=== PATIENT | male | born 1965 | race Caucasian/White ===

== ENCOUNTER 2023-10-05 06:52 | Outpatient (OUT) | payer OTHER, SELFPAY ==
[2023-10-05 07:39] LABS: Alanine Aminotransferase 17 U/L (16-63); Albumin Globulin Ratio 1.1; Albumin Level 3.6 g/dL (3.4-5.0); Alkaline Phosphatase 50 U/L (46-116); Anion Gap 12.3; Aspartate Amino Transferase 19 U/L (15-37); BUN Creatinine Ratio 13.8; Basophils Absolute Auto 0.1 10^3/uL (0.0-0.1); Basophils Percent Auto 1.3 % (0.2-2.0); Bilirubin Total 0.4 mg/dL (0.2-1.0); Calcium 8.5 mg/dL (8.5-10.1); Carbon Dioxide 29.8 mmol/L (21.0-32.0); Chloride 104 mmol/L (98-107); Chol HDL Ratio 4.2; Cholesterol 233 mg/dL (<=200); Eosinophils Absolute Auto 1.7 10^3/uL (0.0-0.7); Eosinophils Percent Auto 25.3 % (0.9-7.0); Estimated GFR (African America >60 (>=60); Estimated GFR (Non-African Ame >60 (>=60); Globulin 3.3 g/dL; Glucose 100 mg/dL (74-106); HDL Cholesterol 55 mg/dL (40-60); Hematocrit 42.9 % (42.0-54.0); Hemoglobin 13.9 g/dL (14.0-18.0); Immature Granulocytes Abs Auto 0.02 10^3/uL (0.00-0.03); Immature Granulocytes Pct Auto 0.3 % (0.0-0.5); Lymphocytes Absolute Auto 1.9 10^3/uL (1.2-3.8); Lymphocytes Percent Auto 27.9 % (20.5-60.0); Mean Corpuscular HGB Conc 32.4 g/dL (29.9-35.2); Mean Corpuscular Hemoglobin 31.1 pg (25.9-34.0); Mean Platelet Volume 9.5 fL (9.5-13.5); Monocytes Absolute Auto 0.5 10^3/uL (0.3-0.8); Monocytes Percent Auto 7.8 % (1.7-12.0); Neutrophils Absolute Auto 2.5 10^3/uL (1.4-6.5); Neutrophils Percent Auto 37.4 % (43.0-75.0); Platelet Count 227 10^3/uL (150-450); Potassium 4.1 mmol/L (3.5-5.1); Red Blood Count 4.47 10^6/uL (4.70-6.10); Red Cell Distribution Width 12.9 % (11.0-15.0); Sodium 142 mmol/L (136-145); Total Protein 6.9 g/dL (6.4-8.2); Triglycerides 130 mg/dL (<=150); White Blood Count 6.7 10^3/uL (4.0-11.0)
[2023-10-05 07:55] LABS: Prostate Specific Antigen Scrn 2.02 ng/mL (<=4.00)
== END 2023-10-05 06:53 | disposition home or self-care (01) ==
LOC: LAB 06:55
PROVIDERS: PCP Internal Medicine; Visit Provider Internal Medicine
DX: Z00.00 Encounter for general adult medical examination without abnormal findings (principal); Z12.5 Encounter for screening for malignant neoplasm of prostate
CPT/HCPCS: 36415; 80053; 80061; 85025; G0103

== ENCOUNTER 2023-11-14 10:56 | Outpatient (OUT) | payer OTHER, SELFPAY ==
[2023-11-14 11:51] LABS: Basophils Absolute Auto 0.1 10^3/uL (0.0-0.1); Basophils Percent Auto 0.8 % (0.2-2.0); Eosinophils Absolute Auto 0.6 10^3/uL (0.0-0.7); Eosinophils Percent Auto 7.8 % (0.9-7.0); Hematocrit 45.8 % (42.0-54.0); Hemoglobin 14.5 g/dL (14.0-18.0); Immature Granulocytes Abs Auto 0.01 10^3/uL (0.00-0.03); Immature Granulocytes Pct Auto 0.1 % (0.0-0.5); Lymphocytes Absolute Auto 1.9 10^3/uL (1.2-3.8); Lymphocytes Percent Auto 26.8 % (20.5-60.0); Mean Corpuscular HGB Conc 31.7 g/dL (29.9-35.2); Mean Corpuscular Hemoglobin 30.3 pg (25.9-34.0); Mean Corpuscular Volume 95.8 fL (80.0-94.0); Mean Platelet Volume 9.6 fL (9.5-13.5); Monocytes Absolute Auto 0.7 10^3/uL (0.3-0.8); Monocytes Percent Auto 9.5 % (1.7-12.0); Neutrophils Absolute Auto 3.9 10^3/uL (1.4-6.5); Platelet Count 228 10^3/uL (150-450); Red Blood Count 4.78 10^6/uL (4.70-6.10); Red Cell Distribution Width 12.4 % (11.0-15.0); White Blood Count 7.2 10^3/uL (4.0-11.0)
[2023-11-14 11:59] LABS: Percent Iron Saturation 33.3 %
== END 2023-11-14 10:57 | disposition home or self-care (01) ==
LOC: LAB 10:57
PROVIDERS: PCP Internal Medicine; Visit Provider Internal Medicine
DX: D64.9 Anemia, unspecified (principal)
CPT/HCPCS: 36415; 82607; 82728; 82746; 83540; 83550; 85025

== ENCOUNTER 2024-10-16 06:26 | Outpatient (OUT) | payer OTHER, SELFPAY ==
--- OUTSIDE RECORDS SUMMARY | 2024-10-16 06:29 | XMS_ITS | CCD ---
Author Organization [facility] Care Team Providers Care Graphic Coordinator Name Role Phone ZANDER BOWDEN Unavailable Unavailable BOGDAN ZANDER P Unavailable Unavailable GASEYO Unavailable Unavailable JAM TOVAR Unavailable Unavailable BOGDANZANDER Unavailable Unavailable BALLJAM Unavailable Unavailable BOGDAN, ZANDER Fleming Unavailable Unavailable BOGDAN, ZANDER P Unavailable Unavailable JAM TOVAR Unavailable Unavailable GUY, DR RIDLEY Attending Unavailable BALL, DR RIDLEY Consulting Unavailable BALL, DR RIDLEY Primary Care Unavailable BALL, DR RIDLEY Admitting Unavailable Jam Tovar Unavailable HARLEY JEFFREY Attending Unavailable Medications Current Medications Medication Drug Class(es) Dates Sig (Normalized) Sig (Original) amLODIPine 5 mg oral tablet (4 sources) Dihydropyridine Calcium Channel Drew amLODIPine Besylate 5 mg TAKE 1 TABLET DAILY Active benazepril hydrochloride 20 mg oral tablet (4 sources) Angiotensin Converting Enzyme Inhibitor Benazepril HCl 20 mg TAKE 1 TABLET DAILY Active Completed/Discontinued Medications Medication Drug Class(es) Dates Sig (Normalized) Sig (Original) cephalexin 500 mg oral capsule (3 sources) Cephalosporin Antibacterial Start: 02-11-2014 take 1 capsule by mouth every six hours Cephalexin 500 MG 1 capsule Orally Four times a day for 10 day(s) Jan, Not-Taking/PRN predniSONE 20 mg oral tablet (3 sources) Start: 11-16-2022 Prednisone 20 MG predniSONE 20mg, 1 (one) tablet two times daily w/ food x 3 days then qd w/ food x 3 days # 9, 11/16/2022, No Refill. Active Oral two times daily w/ food x 3 days then qd w/ food x 3 days for 6 Oct, Not-Taking/PRN Suprep Bowel Prep . (3 sources) Start: 09-10-2014 Suprep Bowel Prep . as directed Orally as directed for 1 dose(s) Aug, Not-Taking/PRN Start: 09-10-2014 Suprep Bowel P rep . as directed Orally as directed for 1 dose(s) Aug, Not-Taking Triamcinolone (3 sources) Corticosteroid Start: 11-04-2022 Triamcinolone Acetonide 0.5% triamcinolone acetonide 0.5%, 1 (one) gram two times daily # 60, 11/04/2022, No Refill. Active topical two times daily for Oct, Not-Taking/PRN Start: 11-04-2022 Triamcinolone Acetonide 0.5% triamcinolone acetonide 0.5%, 1 (one) gram two times daily # 60, 11/04/2022, No Refill. Active topical two times daily for Oct, Not-Taking Problems Active Problems Problem Classification Problem Date Documented Date Episodic/Chronic Allergic reactions (1 source) Other urticaria Episodic Deficiency and other anemia (1 source) Anemia, unspecified Episodic Diseases of white blood cells (3 sources) Eosinophil count raised; Translations: [Eosinophilia, unspecified] Chronic Disorders of lipid metabolism (8 sources) Pure hypercholesterolemia; Translations: [Familial hypercholesterolemia] Chronic Diverticulosis and diverticulitis (4 sources) Diverticulosis of colon; Translations: [Diverticulosis of large intestine without perforation or abscess without bleeding] Chronic Essential hypertension (4 sources) Essential hypertension; Translations: [Essential (primary) hypertension] Chronic Hyperplasia of prostate (4 sources) Lower urinary tract symptoms due to benign prostatic hypertrophy; Translations: [Benign prostatic hyperplasia with lower urinary tract symptoms] Chronic Malaise and fatigue (7 sources) Fatigue; Translations: [Other fatigue] Episodic Osteoarthritis (2 sources) Unilateral primary osteoarthritis, right hip; Translations: [Unilateral primary osteoarthritis, right hip] Onset: 02-09-2018 Chronic Other nutritional; endocrine; and metabolic disorders (8 sources) Body mass index 30+ - obesity; Translations: [Body mass index (BMI) 33.0-33.9, adult] Chronic Other nutritional; endocrine; and metabolic disorders (4 sources) Obesity caused by energy imbalance; Translations: [Other obesity due to excess calories] Chronic Other screening for suspected conditions (not mental disorders or infectious disease) (1 source) Encounter for screening for malignant neoplasm of prostate; Translations: [ENC SCREEN MALIG NEOPLASM PROSTATE] Onset: 09-18-2022 Episodic Other skin disorders (4 sources) Vesicular eczema of hands and/or feet; Translations: [Dyshidrosis [pompholyx]] Episodic Past or Other Problems Problem Classification Problem Date Documented Da te Episodic/Chronic Unclassified (1 source) Eosinophilia, unspecified D72.10 Results Test Name Value Interpretation Reference Range Facility CBC AUTO DIFFon 09-14-2022 BASO # 0.0 103/ul Normal 0[facility]0-0.1 [facility] Comment on above: Performed By: #### C BC #### [facility] [address] [address] [address] Cornelio Pelayo Basophils/100 WBC (Bld) 0.4 % Normal 0.2-2.0 [facility] Comment on above: Performed By: #### C BC #### [facility] [address] [address] [address] Cornelio Pelayo EO # 0.2 103/ul Normal 0.0-0.7 [facility] Comment on above: Performed By: #### C BC #### [facility] [address] [address] [address] Cornelio Pelayo Eosinophils/100 WBC (Bld) 3.8 % Normal 0.9-7.0 [facility] Comment on above: Performed By: #### C BC #### [facility] [address] [address] [address] Cornelio Pelayo Erythrocyte distribution width (RBC) [Ratio] 13.0 % Normal 11.0-15.0 [facility] Comment on above: Performed By: #### C BC #### [facility] [address] [place] [address] Dr. Cornelio Pelayo Hematocrit (Bld) [Volume fraction] 43.0 % Normal 42.0-54.0 [facility] Comment on above: Performed By: #### C BC #### [facility] [address] [place] [address] Dr. Cornelio Pelayo Hemoglobin (Bld) [Mass/Vol] 14.1 g/dL Normal 14.0-18.0 [facility] Comment on above: Performed By: #### C BC #### [facility] [address] [place] [address] Dr. Cornelio Pelayo IG # 0.00 10e3/ul Normal 0.00-0.03 [facility] Comment on above: Performed By: #### C BC #### [facility] [address] [place] [address] Dr. Cornelio Pelayo IG % 0.0 % Normal 0.0-0.5 [facility] Comment on above: Performed By: #### C BC #### [facility] [address] [place] [address] Dr. Cornelio Pelayo LYMPH # 1.7 103/ul Normal 1.2-3.8 [facility] Comment on above: Performed By: #### C BC #### [facility] [address] [place] [address] Dr. Cornelio Pelayo Lymphocytes/100 WBC (Bld) 36.4 % Normal 20.5-60.0 [facility] Comment on above: Performed By: #### C BC #### [facility] [address] [place] [address] Dr. Cornelio Pelayo MANUAL DIFF REQ NO [facility] Comment on above: Performed By: #### C BC #### [facility] [address] [place] [address] Dr. Cornelio Pelayo MCH (RBC) [Entitic mass] 30.7 pg Normal 25.9-34.0 [facility] Comment on above: Performed By: #### C BC #### [facility] [address] [place] [address] Dr. Cornelio Pelayo MCHC (RBC) [Mass/Vol] 32.8 g/dL Normal 29.9-35.2 [facility] Comment on above: Performed By: #### C BC #### [facility] [address] [place] [address] Dr. Cornelio Pelayo MCV (RBC) [Entitic vol] 93.5 fL Normal 80.0-94.0 [facility] Comment on above: Performed By: #### C BC #### [facility] [address] [place] [address] Dr. Cornelio Pelayo MONO # 0.4 103/ul Normal 0.3-0.8 [facility] Comment on above: Performed By: #### C BC #### [facility] [address] [place] [address] Dr. Cornelio Pelayo Monocytes/100 WBC (Bld) 8.5 % Normal 1.7-12.0 [facility] Comment on above: Performed By: #### C BC #### [facility] [address] [place] [address] Dr. Cornelio Pelayo NEUT # 2.4 103/ul Normal 1.4-6.5 [facility] Comment on above: Performed By: #### C BC #### [facility] [address] [place] [address] Dr. Cornelio Pelayo Neutrophils/100 WBC (Bld) 50.9 % Normal 43.0-75.0 [facility] Comment on above: Performed By: #### C BC #### [facility] [address] [place] [address] Dr. Cornelio Pelayo Platelet mean volume (Bld) [Entitic vol] 9.0 fL Critically low 9.5-13.5 [facility] Comment on above: Performed By: #### C BC #### [facility] [address] [place] [address] Dr. Cornelio Pelayo PLT 222 103/ul Normal 150-450 [facility] Comment on above: Performed By: #### C BC #### [facility] [address] [place] [address] Dr. Cornelio Pelayo RBC 4.60 106/ul Critically low 4.70-6.10 [facility] Comment on above: Performed By: #### C BC #### [facility] [address] [place] [address] Dr. Cornelio Pelayo WBC 4.7 103/ul Normal 4.0-11.0 [facility] Comment on above: Performed By: #### C BC #### [facility] [address] [place] [address] Dr. Cornelio Pelayo LIPID PROFILEon 09-14-2022 CHOL-HDL RATIO NORM SEE BELOW Normal [facility] Comment on above: Result Comment: 3.3 - 4.4 LOW RISK 4.4 - 7.1 AVERAGE RISK 7.1 - 11.0 MODERATE RISK >11.0 HIGH RISK Performed By: #### L IPID, CMP #### [facility] [address] [address] [address] Cornelio Pelayo Cholesterol [Mass/Vol] 233 mg/dL Critically high <=200 [facility] Comment on above: Performed By: #### L IPID, CMP #### [facility] [address] [address] [address] Cornelio Pelayo Cholesterol in HDL [Mass/Vol] 58 mg/dL Normal 40-60 [facility] Comment on above: Performed By: #### L IPID, CMP #### [facility] [address] [place] [address] Dr. Cornelio Pelayo Cholesterol in LDL [Mass/Vol] 151.4 mg/dL [facility] Comment on above: Performed By: #### L IPID, CMP #### [facility] [address] [address] [address] Cornelio Pelayo Cholesterol.total/C holesterol in HDL [Mass ratio] 4.0 {ratio} [facility] Comment on above: Performed By: #### L IPID, CMP #### [facility] [address] [place] [address] Dr. Cornelio Pelayo HDL NORMAL > or = 60 mg/dl - LO W CARDIOVASCULAR RISK <40 mg/dl - HIGH CARDIOVASCULAR RISK [facility] Comment on above: Performed By: #### L IPID, CMP #### [facility] [address] [address] [address] Cornelio Pelayo LDL CALC NORMAL SEE BELOW [facility] Comment on above: Result Comment: <100 mg/dl OPTIMAL 100 - 129 mg/dl NEAR OR ABOVE OPTIMAL 130 - 159 mg/dl BORDERLINE HIGH 160 - 189 mg/dl HIGH >190 mg/dl VERY HIGH Performed By: #### L IPID, CMP #### [facility] [address] [place] [address] Dr. Cornelio Pelayo Triglyceride [Mass/Vol] 118 mg/dL Normal <=150 [facility] Comment on above: Performed By: #### L IPID, CMP #### [facility] [address] [place] [address] Dr. Cornelio Pelayo VLDL CALC 23.6 mg/dL [facility] Comment on above: Performed By: #### L IPID, CMP #### [facility] [address] [place] [address] Dr. Cornelio Pelayo PROF 14(COMP METB)on 022 Albumin [Mass/Vol] 3.7 g/dL Normal 3.4-5.0 [facility] Comment on above: Performed By: #### L IPID, CMP #### [facility] [address] [place] [address] Dr. Cornelio Pelayo Albumin/Globulin [Mass ratio] 1.1 {ratio} [facility] Comment on above: Performed By: #### L IPID, CMP #### [facility] [address] [place] [address] Dr. Cornelio Pelayo ALP [Catalytic activity/Vol] 50 U/L Normal 46-116 [facility] Comment on above: Performed By: #### L IPID, CMP #### [facility] [address] [place] [address] Dr. Cornelio Pelayo ALT [Catalytic activity/Vol] 15 U/L Critically low 16-63 [facility] Comment on above: Performed By: #### L IPID, CMP #### [facility] [address] [place] [address] Dr. Cornelio Pelayo Anion gap [Moles/Vol] 11.0 mmol/L [facility] Comment on above: Performed By: #### L IPID, CMP #### [facility] [address] [place] [address] Dr. Cornelio Pelayo AST [Catalytic activity/Vol] 19 U/L Normal 15-37 [facility] Comment on above: Performed By: #### L IPID, CMP #### [facility] [address] [place] [address] Dr. Cornelio Pelayo Bilirubin [Mass/Vol] 0.4 mg/dL Normal 0.2-1.0 [facility] Comment on above: Performed By: #### L IPID, CMP #### [facility] [address] [place] [address] Dr. Cornelio Pelayo Calcium [Mass/Vol] 8.6 mg/dL Normal 8.5-10.1 [facility] Comment on above: Performed By: #### L IPID, CMP #### [facility] [address] [place] [address] Dr. Cornelio Pelayo Chloride [Moles/Vol] 104 mmol/L Normal 98-107 [facility] Comment on above: Performed By: #### L IPID, CMP #### [facility] [address] [place] [address] Dr. Cornelio Pelayo CO2 [Moles/Vol] 29.1 mmol/L Normal 21.0-32.0 [facility] Comment on above: Performed By: #### L IPID, CMP #### [facility] [address] [place] [address] Dr. Cornelio Pelayo Creatinine [Mass/Vol] 1.15 mg/dL Normal 0.70-1.30 [facility] Comment on above: Performed By: #### L IPID, CMP #### [facility] [address] [place] [address] Dr. Cornelio Pelayo EGFR-AF MEXICAN >60 Normal >=60 [facility] Comment on above: Performed By: #### L IPID, CMP #### [facility] [address] [place] [address] Dr. Cornelio Pelayo EGFR-NON AF MEXICAN >60 Normal >=60 [facility] Comment on above: Performed By: #### L IPID, CMP #### [facility] [address] [place] [address] Dr. Cornelio Pelayo Globulin (S) [Mass/Vol] 3.4 g/dL Normal [facility] Comment on above: Performed By: #### L IPID, CMP #### [facility] [address] [place] [address] Dr. Cornelio Pelayo Glucose [Mass/Vol] 103 mg/dL Normal 74-106 [facility] Comment on above: Performed By: #### L IPID, CMP #### [facility] [address] [place] [address] Dr. Cornelio Pelayo Potassium [Moles/Vol] 4.1 mmol/L Normal 3.5-5.1 [facility] Comment on above: Performed By: #### L IPID, CMP #### [facility] [address] [place] [address] Dr. Cornelio Pelayo Protein [Mass/Vol] 7.1 g/dL Normal 6.4-8.2 [facility] Comment on above: Performed By: #### L IPID, CMP #### [facility] [address] [place] [address] Dr. Cornelio Pelayo Sodium [Moles/Vol] 140 mmol/L Normal 136-145 [facility] Comment on above: Performed By: #### L IPID, CMP #### [facility] [address] [place] [address] Dr. Cornelio Pelayo Urea nitrogen [Mass/Vol] 14.0 mg/dL Normal 7.0-18.0 [facility] Comment on above: Performed By: #### L IPID, CMP #### [facility] [address] [place] [address] Dr. Cornelio Pelayo Urea nitrogen/Creatinine [Mass ratio] 12.2 mg/mg [facility] Comment on above: Performed By: #### L IPID, CMP #### [facility] [address] [place] [address] Dr. Cornelio Pelayo XR HIP RIGHT (1 VIEW)on 01-19 XR HIP RIGHT (1 VIEW) REPORT: Intraprocedural fluoroscopyINDICATION: Total right hip arthroplastyFINDINGS/Final report electronically signed by Nicole Dean on 02/12/2018 8:16 AMIMPRESSION: Fluoroscopy provided for Dr. Bowden in the OR. Total fluoroscopy time was 44.8 seconds. Total reported dose 7.75 mGy. A total of 5 images saved. A right hip arthroplasty is in place.Interpreted by:MEGHAN Batistaigned by:Nicole Dean MD02/12/18inal result Normal [facility] Hgb/Hcton 02-10-2018 Hematocrit (HCT) 38.5 % Low 40.7-50.3 [facility] Comment on above: Result Comment: Perf ormed at [facility] [address] [place] [address] [phone] Performed By: #### H H ####[facility] , [place] [id number] Hemoglobin mass conc (Bld) 12.7 g/dL Low 13.0-17.0 [facility] Comment on above: Performed By: #### H H ####[address] [place] [address] Plan of Careon 02-10-2018 HIM IP Note OR Grid Molder Normal [facility] HIM IP Note OR Grid Molder Normal [facility] Progress Noteon 02-10-2018 HIM IP Note OR Grid Molder Normal [facility] HIM IP Note OR Grid Molder Normal [facility] HIM IP Note OR Grid Molder Normal [facility] Discharge Summaryon 02-10-20 18 HIM IP Note OR Grid Molder Normal [facility] Op Noteon 02-09-2018 HIM IP Note OR Grid Molder Normal [facility] Progress Noteon 02-09-2018 HIM IP Note OR Grid Molder Normal [facility] HIM IP Note OR Grid Molder Normal [facility] Surgical Pathologyon 018 Surgical Pathology (NOTE)[id number] MEDICAL CENTERSULTMON[facility] PATHOLOGISTS [facility] [id number] [place] [phone] Fax: SURGICAL PATHOLOGY CONSULTATIONPatient Name: Melanie CALIX Rec: [id number] Number: [id number]: 02/09/2018Received: 02/10/2018Reported: 02/13/2018 10:53-- Diagnosis --FEMORAL HEAD, TOTAL HIP ARTHROPLASTY: DEGENERATIVE OSTEOARTHRITIS.Yusef UribeElectronically Signed Out ajb/3/27/2018Clinical InformationPre-op Diagnosis: RIGHT HIP OSTEOARTHRITIS Operative Findings: FEMORAL HEADOperation Performed: HIP TOTAL ARTHROPLASTY ANTERIOR APPROACHSource of Specimen1: FEMORAL HEAD (A)Gross Description MYA CALIX, FEMORAL HEAD A 7.8 x 6.9 x 6.9 cm femoral head andneck. The cortical surface is brantley with eburnation. Sectioningreveals yellow-brantley trabecular bone with slight hemorrhage at themargin. No masses are seen. There are no areas of marked softeningor necrosis. [employer] sections 1cs. after decalcification. asMicroscopic DescriptionSections of femoral head demonstrates areas of complete erosion ofarticular cartilage with cortical bone hypertrophy and subcorticalbone cyst formation, compatible with degenerative osteoarthritis. Normocellular trilineage hematopoietic marrow is present. There is noevidence of neoplasia.. Normal [facility] XR HIP RIGHT (2-3 VIEWS)on 0 02-09-2018 XR HIP RIGHT (2-3 VIEWS) FINAL REPORTEXAM: XR HIP RIGHT (2-3 VIEWS)HISTORY: franklyn TECHNIQUE: Right hip, two viewsPRIORS: None.FINDINGS: Patient is status post right hip replacement surgery. Prosthesis components appear in acceptable position/alignment. There is no fracture seen. There is no dislocation. IMPRESSION: Impression: Status post total hip arthroplasty Interpreted by:MEGHAN Santoigned by:Sharon Hughes MD02/09/18inal result Normal [facility] Type + Screenon 02-07-2018 Type + Screen Sample Expiration Arm Band Number [id number] ABO/Rh(D) A NEGATIVE Antibody Screen NEGATIVEPerformed at [address] [place] [address] [phone] Normal [facility] Comment on above: Performed By: #### T YS ####[address] [place] [address] MRSA, DNA, Nasalon 8 MRSA, DNA, Nasal NEGATIVE: MRSA DNA n ot detected by nucleic acid amplification. [facility] Comment on above: Result Comment: Resu lts should be used as an adjunct to nosocomial control efforts to identify patients needing enhanced precautions.The test is not intended to identify patients with staphylococcal infections. Results should not be used to guide or monitor treatment for MRSA infections.Performed at [facility] [address], [place] [id number] [phone] Performed By: #### M RSANO ####[facility] [place] [phone] , [place] [phone] APTTon 01-15-2018 aPTT 28.4 s Normal 23.2-34.4 [facility] Comment on above: Result Comment: Perf ormed at [address] [place], [place] [phone] Performed By: #### C BC, PT, PTT, CP, CRP, SED ####[address] [place] [address] C-Reactive Proteinon 018 C reactive protein (CRP) 1.6 mg/L Normal 0.0-5.0 [facility] Comment on above: Result Comment: Perf ormed at [address] [place] [address] Performed By: #### C BC, PT, PTT, CP, CRP, SED ####[address] [place] [address] CBCon 01-15-2018 Erythrocyte distribution width Auto Ratio (RBC) 13.4 % Normal 12.1-15.2 [facility] Comment on above: Performed By: #### C BC, PT, PTT, CP, CRP, SED ####[address] , [place] [phone] Erythrocytes (RBC) 4.90 10*6/uL Normal 4.5-5.9 [facility] Comment on above: Performed By: #### C BC, PT, PTT, CP, CRP, SED ####[address] [place] [address] Hematocrit (HCT) 44.8 % Normal 41-53 [facility] Comment on above: Performed By: #### C BC, PT, PTT, CP, CRP, SED ####[address] [place] [address] Hemoglobin mass conc (Bld) 14.7 g/dL Normal 13.5-17.0 [facility] Comment on above: Performed By: #### C BC, PT, PTT, CP, CRP, SED ####[address] [place] [address] MCH 30.0 pg Normal 26-34 [facility] Comment on above: Performed By: #### C BC, PT, PTT, CP, CRP, SED ####[address] [place] [address] MCHC mass conc (RBC) 32.8 g/dL Normal 31-37 [facility] Comment on above: Performed By: #### C BC, PT, PTT, CP, CRP, SED ####[address] [place] [address] MCV 91.5 fL Normal 80-100 [facility] Comment on above: Performed By: #### C BC, PT, PTT, CP, CRP, SED ####[address] [place] [address] Platelet mean volume (PMV) 7.9 fL Normal 6.0-12.0 [facility] Comment on above: Result Comment: Perf ormed at [address] [place] [address] Performed By: #### C BC, PT, PTT, CP, CRP, SED ####[address] [place] [address] Platelets 248 10*3/uL Normal 140-450 [facility] Comment on above: Performed By: #### C BC, PT, PTT, CP, CRP, SED ####[address] [place] [address] WBC (Leukocytes) 5.7 10*3/uL Normal 3.5-11.0 [facility] Comment on above: Performed By: #### C BC, PT, PTT, CP, CRP, SED ####[address] [place] [address] Erythrocytes (RBC) NOT REPORTED Normal [facility] Comment on above: Performed By: #### C BC, PT, PTT, CP, CRP, SED ####[address] [place] [address] Comp Metabolic Profon 2017 (cont.) Normal [facility] Comment on above: Result Comment: Aver age GFR for 50-59 years old: 93 mL/min/1.73sq mChronic Kidney Disease: <60 mL/min/1.73sq mKidney failure: <15 mL/min/1.73sq meGFR calculated using average adult body mass. Additional eGFR calculator available at:http://[email or web address].Treedom/multiple_crcl_2012.htm Performed By: #### C BC, PT, PTT, CP, CRP, SED ####[address] [place] [address] Alanine aminotransferase (ALT) 14 U/L Normal 5-41 [facility] Comment on above: Performed By: #### C BC, PT, PTT, CP, CRP, SED ####[address] [place] [address] Albumin 4.4 g/dL Normal 3.5-5.2 [facility] Comment on above: Performed By: #### C BC, PT, PTT, CP, CRP, SED ####[address] [place] [address] Albumin/Globulin Ratio 1.4 {ratio} Normal 1.0-2.5 [facility] Comment on above: Performed By: #### C BC, PT, PTT, CP, CRP, SED ####[address] [place] [address] Alkaline Phos 48 U/L Normal 40-129 [facility] Comment on above: Performed By: #### C BC, PT, PTT, CP, CRP, SED ####[address] [place] [address] Anion gap 11 mmol/L Normal 9-17 [facility] Comment on above: Performed By: #### C BC, PT, PTT, CP, CRP, SED ####[address] [place] [address] Aspartate aminotransferase (AST) 20 U/L Normal <40 [facility] Comment on above: Performed By: #### C BC, PT, PTT, CP, CRP, SED ####[address] [place] [address] Bilirubin Ql (U) 0.27 mg/dL Low 0.3-1.2 [facility] Comment on above: Performed By: #### C BC, PT, PTT, CP, CRP, SED ####[address] [place] [address] BUN/CRE Ratio 17 Normal 9-20 [facility] Comment on above: Performed By: #### C BC, PT, PTT, CP, CRP, SED ####[address] [place] [address] Calcium 9.2 mg/dL Normal 8.6-10.4 [facility] Comment on above: Performed By: #### C BC, PT, PTT, CP, CRP, SED ####[address] [place] [address] Chloride 102 mmol/L Normal 98-107 [facility] Comment on above: Performed By: #### C BC, PT, PTT, CP, CRP, SED ####[address] [place] [address] CO2 25 mmol/L Normal 20-31 [facility] Comment on above: Performed By: #### C BC, PT, PTT, CP, CRP, SED ####[address] [place] [address] Creatinine 0.94 mg/dL Normal 0.70-1.20 [facility] Comment on above: Performed By: #### C BC, PT, PTT, CP, CRP, SED ####[address] [place] [address] eGFR (non-black) mL/min/{1.73_m2} Normal >60 [facility] Comment on above: Performed By: #### C BC, PT, PTT, CP, CRP, SED ####[address] [place] [address] Glucose mass conc 96 mg/dL Normal 70-99 [facility] Comment on above: Performed By: #### C BC, PT, PTT, CP, CRP, SED ####[address] [place] [address] Potassium molar conc 4.9 mmol/L Normal 3.7-5.3 [facility] Comment on above: Performed By: #### C BC, PT, PTT, CP, CRP, SED ####[address] [place] [address] Protein 7.6 g/dL Normal 6.4-8.3 [facility] Comment on above: Performed By: #### C BC, PT, PTT, CP, CRP, SED ####[address] [place] [address] Sodium 138 mmol/L Normal 135-144 [facility] Comment on above: Performed By: #### C BC, PT, PTT, CP, CRP, SED ####[address] [place] [address] Staging: Normal [facility] Comment on above: Result Comment: Stag e 1: Some kidney damage normal GFRStage 2: Mild kidney damage GFR 60-89Stage 3: Moderate kidney damage GFR 30-59Stage 4: Severe kidney damage GFR 15-29Stage 5: Severe kidney damage GFR <15ESRD - chronic treatment by dialysis or transplantPerformed at [address] [place] [address] Performed By: #### C BC, PT, PTT, CP, CRP, SED ####[address] [place] [address] Urea nitrogen 16 mg/dL Normal 6-20 [facility] Comment on above: Performed By: #### C BC, PT, PTT, CP, CRP, SED ####[address] [place] [address] MRSA, DNA, Nasalon 8 Specimen Description .NASAL SWAB Normal [facility] Comment on above: Result Comment: Perf ormed at [address] [place] [address] Performed By: #### M RSANO ####[facility] [address] [place], [place] [phone] [place] [address] PTon 01-15-2018 INR Coag RelTime (PPP) 1.0 {INR} Normal 0.9-1.2 [facility] Comment on above: Result Comment: Perf ormed at [address] [place] [address] Performed By: #### C BC, PT, PTT, CP, CRP, SED ####[address] [place] [address] Prothrombin time (PT) Coag time (PPP) 10.5 s Normal 9.7-12.2 [facility] Comment on above: Performed By: #### C BC, PT, PTT, CP, CRP, SED ####[address] [place] [address] Progress Noteon 01-15-2018 HIM IP Note OR Grid Molder Normal [facility] HIM IP Note OR Grid Molder Normal [facility] Sedimentation Rateon 018 Sedimentation Rate 5 mm Normal 0-20 [facility] Comment on above: Result Comment: Perf ormed at [address] [place] [address] Performed By: #### C BC, PT, PTT, CP, CRP, SED ####[address] [place] [address] UA w/Reflex Cultureon 2017 Acetaminophen mass conc Negative Normal NEG [facility] Comment on above: Performed By: #### U AX, UMICAO ####[address] [place] [address] Bilirubin (direct) Negative Normal NEG [facility] Comment on above: Performed By: #### U AX, UMICAO ####[address] [place] [address] Hemoglobin mass conc (Bld) Negative Normal NEG [facility] Comment on above: Performed By: #### U AX, UMICAO ####[address] [place] [address] Nitrite,Ur Negative Normal NEG [facility] Comment on above: Performed By: #### U AX, UMICAO ####[address] [place] [address] Turbidity CLEAR Normal CLEAR [facility] Comment on above: Performed By: #### U AX, UMICAO ####[address] [place] [address] Urine, color YELLOW Normal YEL [facility] Comment on above: Performed By: #### U AX, UMICAO ####[address] [place] [address] Urine, glucose presence Negative Normal NEG [facility] Comment on above: Performed By: #### U AX, UMICAO ####[address] [place] [address] Urine, leukocyte esterase presence Negative Normal NEG [facility] Comment on above: Result Comment: Perf ormed at [address] [place] [address] Performed By: #### U AX, UMICAO ####[address] [place] [address] Urine, pH 5.5 [pH] Normal 5.0-9.0 [facility] Comment on above: Performed By: #### U AX, UMICAO ####[address] [place] [address] Urine, protein presence Negative Normal NEG [facility] Comment on above: Performed By: #### U AX, UMICAO ####[address] [place] [address] Urine, specific gravity 1.020 Normal 1.010-1.020 [facility] Comment on above: Performed By: #### U AX, UMICAO ####[address] [place] [address] Urobilinogen,Ur Normal Normal NORM [facility] Comment on above: Performed By: #### U AX, UMICAO ####[address] [place] [address] Comment NOT REPORTED Normal [facility] Comment on above: Performed By: #### U AX, UMICAO ####[address] [place] [address] Urinalysis,Microon 8 ----- Normal [facility] Comment on above: Performed By: #### U AX, UMICAO ####[address] [place] [address] Urine WBC's None Normal 0-5 [facility] Comment on above: Performed By: #### U AX, UMICAO ####[address] [place] [address] Urine, epithelial cells in sediment 0 TO 2 Normal 0-5 [facility] Comment on above: Result Comment: Perf ormed at [facility] [address] [place] [address] Performed By: #### U AX, UMICAO ####[address] [place] [address] Urine, erythrocytes None Normal 0-2 [facility] Comment on above: Performed By: #### U AX, UMICAO ####[address] [place] [address] Epithelial, Renal NOT REPORTED Normal 0 [facility] Comment on above: Performed By: #### U AX, UMICAO ####[address] [place] [address] Mucus Strands NOT REPORTED Normal [facility] Comment on above: Performed By: #### U AX, UMICAO ####[address] [place] [address] Other Observations NOT REPORTED [facility] Comment on above: Performed By: #### U AX, UMICAO ####[address] [place] [address] Trichomonas NOT REPORTED Normal [facility] Comment on above: Performed By: #### U AX, UMICAO ####[address] [place] [address] Urine, amorphous sediment presence in sediment NOT REPORTED Normal [facility] Comment on above: Performed By: #### U AX, UMICAO ####[address] [place] [address] Urine, bacteria in sediment NOT REPORTED Normal NONE [facility] Comment on above: Performed By: #### U AX, UMICAO ####[address] [place] [address] Urine, casts in sediment NOT REPORTED Normal [facility] Comment on above: Performed By: #### U AX, UMICAO ####[address] [place] [address] Urine, crystals in sediment NOT REPORTED Normal NONE [facility] Comment on above: Performed By: #### U AX, UMICAO ####[address] [place] [address] Urine, yeast presence in sediment NOT REPORTED Normal NONE [facility] Comment on above: Performed By: #### U AX, UMICAO ####[address] [place] [address] Encounters Encounter Date Encounter Type Care Provider Facility Start: 01-31-2024 End: 01-31-2024 ambulatory HARLEY JEFFREY Not Available Start: 12-06-2023 End: 12-06-2023 ambulatory Jam Tovar Other [employer] [facility] Other Start: 12-06-2023 Telephone encounter Jam Rodriguez [facility] Start: 11-15-2023 End: 11-15-2023 ambulatory Jam Tovar Other [employer] [facility] Other Start: 11-15-2023 Telephone encounter Jam GRACIA [facility] Start: 11-08-2023 End: 11-08-2023 ambulatory Jam Tovar Other [employer] Other Start: 11-08-2023 Telephone encounter Jam Rodriguez [facility] Start: 10-08-2023 End: 10-08-2023 ambulatory Jam Tovar Other [facility] Other Start: 10-08-2023 Telephone encounter [facility] Start: 09-18-2022 Encounter for genera l adult medical examination without abnormal findings DR JAM TOVAR [facility] Start: 09-14-2022 End: 09-15-[address] JAM TOVAR Facility:[facility] Start: 09-14-2022 End: 09-15-2022 Encounter for general adult medical examination without abnormal findings DR JAM TOVAR Facility:[facility] Start: 02-09-2018 End: 02-10-2018 Evaluation and management of inpatient ZANDER BOWDEN [facility] Start: 02-07-2018 End: 02-08-[address] [facility] Start: 01-15-2018 End: 01-20-[address] [facility] Procedures Date Procedure Procedure Detail Performing Clinician Start: 09-14-[address] KRUEGER [facility] [place] Comment on above: Performed By: #### P [facility] #### [facility] [address] [place] [address] Dr. Cornelio Pelayo Start: 02-10-2018 INCENTIVE SPIROMETRY RT ZANDER BOGDAN Start: 02-10-2018 INCENTIVE SPIROMETRY RT ZANDER BOGDAN Start: 02-10-2018 INCENTIVE SPIROMETRY RT ZANDER BOGDAN Start: 02-10-2018 INITIATE OXYGEN THER APY PROTOCOL ZANDER BOGDAN Start: 02-10-2018 NASAL CANNULA OXYGEN BR BRYAN BOGDAN Start: 02-10-2018 INCENTIVE SPIROMETRY RT ZANDER BOGDAN Start: 02-10-2018 INTAKE AND OUTPUT ZANDER BOGDAN Start: 02-10-2018 HEMOGLOBIN AND HEMAT OCRIT, BLOOD ZANDER BOGDAN Start: 02-10-2018 INCENTIVE SPIROMETRY RT ZANDER BOGDAN Start: 02-09-2018 Radex hip unilateral with pelvis 2-3 views ZANDER BOGDAN Start: 02-09-2018 ELEVATE HOB ZANDER [facility] Start: 02-09-2018 GRADUAL COMPRESSION STOCKINGS (GAUTAM) ZANDER BOGDAN Start: 02-09-2018 INCENTIVE SPIROMETRY RT ZANDER BOGDAN Start: 02-09-2018 INITIATE OXYGEN THER APY PROTOCOL ZANDER BOGDAN Start: 02-09-2018 IP CONSULT TO HOSPITALIST ZANDER BROWNINGHT Start: 02-09-2018 NASAL CANNULA OXYGEN BR BRYAN BOGDAN Start: 02-09-2018 OT EVAL AND TREAT ZANDER BOGDAN Start: 02-09-2018 PT EVAL AND TREAT ZANDER BOGDAN Start: 02-09-2018 TOBACCO CESSATION EDUCATION ZANDER BOGDAN Start: 02-09-2018 DIET GENERAL ZANDERBRYAN KENNEDY T Start: 02-09-2018 ELEVATE EXTREMITY ZANDER BOGDAN Start: 02-09-2018 FULL CODE ZANDERBRYAN KENNEDY T Start: 02-09-2018 INTAKE AND OUTPUT ZANDER BOGDAN Start: 02-09-2018 NEURO/VASCULAR CHECKS B JOAQUÍN BOGDAN Start: 02-09-2018 NURSING COMMUNICATION B JOAQUÍN BOGDAN Start: 02-09-2018 POSITIONING INSTRUCTION ZANDER BOGDAN Start: 02-09-2018 VITAL SIGNS ZANDER NAM T Start: 02-09-2018 WEIGHT BEARING TOLERATED ZANDER BOGDAN Start: 02-09-2018 WOUND CARE ZANDERBRYAN KENNEDY T Start: 02-09-2018 DISCHARGE PATIENT ZANDER BOGDAN Start: 02-09-2018 TRANSFER PATIENT ZANDER BOGDAN Start: 02-09-2018 Radex hip unilateral with pelvis 1 view ZANDER BOGDAN Start: 02-09-2018 PATIENT STATUS (DIRECT) ZANDER BOGDAN Start: 02-09-2018 SURGICAL PATHOLOGY JO N BOGDAN Start: 02-07-2018 TYPE AND SCREEN ZANDER H ECHT Start: 01-15-2018 EKG 12-LEAD ZANDER BROWNING T Start: 01-15-2018 APTT ZANDERBRYAN BROWNING T Start: 01-15-2018 C-reactive protein JO N BOGDAN Start: 01-15-2018 CBC ZANDERBRYAN BROWNING T Start: 01-15-2018 COMPREHENSIVE METABO LIC PANEL ZANDER OBGDAN Start: 01-15-2018 Microscopic urinalysis ZANDER BOGDAN Start: 01-15-2018 MRSA DNA PROBE, NASAL B JOAQUÍN BOGDAN Start: 01-15-2018 PROTIME-INR ZANDER HECH T Start: 01-15-2018 SEDIMENTATION RATE JO N BOGDAN Start: 01-15-2018 UA W/REFLEX CULTURE OLAF AN [facility] Laboratory test resu lt abnormal Jam Tovar Other Immunizations Immunization Date Immunization Notes Care Provider Fa cility 02-11-2014 tetanus toxoid, reduced diphtheria toxoid, and acellular pertussis vaccine, adsorbed Jam Tovar Other [employer] Other Payers Date Payer Category Payer Unknown [id number] 1965 Unknown [id number] 1965 Unknown [id number] 1959 Unknown [id number] Social History Date Type Detail Facility Sex Assigned At [facility] [facility] Other Evaluation note 12-06-2023 Note Date & Type Note Facility 12-06-2023 Evaluation note Encounter Date Diagnosis Assessment Notes Nov, Chronic urticaria (ICD-10 - L50.8) Patient w/ intermittent pruritic rash. Requesting allergy testing [facility] Other Evaluation note 11-08-2023 Note Date & Type Note Facility 11-08-2023 Evaluation note Encounter Date Diagnosis Assessment Notes Oct, Anemia (ICD-10 - D64.9) Oct, Eosinophilia, unspecified (ICD-10 - D72.10) [facility] Other Evaluation note Note Date & Type Note Facility Evaluation note No Information [facility] Other History general Narrative - Reported Note Date & Type Note Facility History general Narrative - Reported Type Medical History Eczema, dyshidrotic Medical History Diverticulosis of colon Medical History Primary hypertension Medical History [place] Medical History Fatigue Medical History Benign prostatic hyp erplasia with lower urinary tract symptoms Medical History Elevated CK Medical History Hyperlipidemia type II Surgical History Colonoscopy 09/2014 Surgical History Vasectomy 2002 Surgical History Appendectomy 2000 Surgical History EGD 2009 Surgical History Right FRANKLYN 2018 Hospitalization History see above list [employer] Other History general Narrative - Reported Note Date & Type Note Facility History general Narrative - Reported Type Medical History Eczema, dyshidrotic Medical History Diverticulosis of colon Medical History Primary hypertension Medical History Benign prostatic hyp erplasia with lower urinary tract symptoms Medical History Hyperlipidemia type II Surgical History Colonoscopy 09/2014 Surgical History Vasectomy 2003 Surgical History Appendectomy 2000 Surgical History EGD 2009 Surgical History Right FRANKLYN 2018 Hospitalization History see above list [facility] Other Summary Purpose Family History No Family History Records FoundNo Family History Records FoundNo Family History Records Found Advance Directives No Advanced Directives Records FoundNo Advanced Directives Records FoundNo Advanced Directives Records Found Reason for Referral Reason Urticaria Diagnosis 1 Chronic urticaria (L 50.8) Referral Organization [facility] Referring Provider First Name Jam Referring Provider Last Name Guy Referring Provider Specialty Internal Me dicine Referred Organization Unknown Facility Referred Provider Harley Jefrfey Referred Provider Specialty Allergy/Immu nology Referral Priority Routine General Notes Patient w/ intermitt ent, pruritic rash. This occurs on his trunk and extremities. He denies dysphagia, dyspnea, cough or wheezing. Mild eosinophilia. Requesting allergy testing. Additional Source Comments (unrecognized sect ion and content) No Status Records FoundNo Status Records FoundNo Status Records Found INFORMATION SOURCE (unrecogn ized section and content) DATE CREATED AUTHOR 05/10/2018 [facility] DATE CREATED AUTHOR AUTHOR'S ORGANIZ ATION 09/18/2022 [facility] DATE CREATED AUTHOR AUTHOR'S ORGANIZ ATION 02/01/2024 [facility] EPIC REASON FOR VISIT (unrecogniz ed section and content) reminderrepeat lab workLab r esultsallergy testing FOR RECORDS PERTAINING TO PATIENTS WHO ARE OR HAVE BEEN ENROLLED IN A CHEMICAL DEPENDENCY/SUBSTANCEABUSE PROGRAM, SOME INFORMATION MAY BE OMITTED. This clinical summary was aggregated from multiple sources. Caution should be exercised in using it in the provision of clinical care. This summary normalizes information from multiple sources, and as a consequence, information in this document may materially change the coding, format and clinical context of patient data. In addition, data may be omitted in some cases. CLINICAL DECISIONS SHOULD BE BASED ON THE PRIMARY CLINICAL RECORDS. [employer] provides no warranty or guarantee of the accuracy or completeness of information in this document.
[2024-10-16 06:51] LABS: Basophils Percent Auto 0.7 % (0.2-2.0); Eosinophils Absolute Auto 0.2 10^3/uL (0.0-0.7); Eosinophils Percent Auto 4.1 % (0.9-7.0); Hematocrit 42.3 % (42.0-54.0); Hemoglobin 13.9 g/dL (14.0-18.0); Lymphocytes Absolute Auto 1.6 10^3/uL (1.2-3.8); Lymphocytes Percent Auto 35.8 % (20.5-60.0); Mean Corpuscular HGB Conc 32.9 g/dL (29.9-35.2); Mean Corpuscular Hemoglobin 31.4 pg (25.9-34.0); Mean Corpuscular Volume 95.5 fL (80.0-94.0); Mean Platelet Volume 9.4 fL (9.5-13.5); Monocytes Absolute Auto 0.4 10^3/uL (0.3-0.8); Monocytes Percent Auto 9.2 % (1.7-12.0); Neutrophils Absolute Auto 2.3 10^3/uL (1.4-6.5); Neutrophils Percent Auto 50.2 % (43.0-75.0); Platelet Count 212 10^3/uL (150-450); Red Blood Count 4.43 10^6/uL (4.70-6.10); Red Cell Distribution Width 12.5 % (11.0-15.0); White Blood Count 4.6 10^3/uL (4.0-11.0)
[2024-10-16 07:06] LABS: Alanine Aminotransferase 19 U/L (16-63); Albumin Globulin Ratio 1.2; Albumin Level 3.5 g/dL (3.4-5.0); Alkaline Phosphatase 43 U/L (46-116); Anion Gap 10.1; Aspartate Amino Transferase 13 U/L (15-37); Bilirubin Total 0.5 mg/dL (0.2-1.0); Calcium 8.3 mg/dL (8.5-10.1); Carbon Dioxide 29.8 mmol/L (21.0-32.0); Chloride 106 mmol/L (98-107); Chol HDL Ratio 3.8; Cholesterol 207 mg/dL (<=200); Estimated GFR (African America >60 (>=60 mL/min/1.73m^2); Estimated GFR (Non-African Ame 58 (>=60 mL/min/1.73m^2); Glucose 96 mg/dL (74-106); HDL Cholesterol 55 mg/dL (40-60); Potassium 3.9 mmol/L (3.5-5.1); Sodium 142 mmol/L (136-145); Total Protein 6.5 g/dL (6.4-8.2); Triglycerides 129 mg/dL (<=150); VLDL CHOLESTEROL 25.8 mg/dL
[2024-10-16 08:56] LABS: Prostate Specific Antigen Scrn 1.66 ng/mL (<=4.00)
== END 2024-10-16 06:27 | disposition home or self-care (01) ==
LOC: LAB 06:27
PROVIDERS: PCP Internal Medicine; Visit Provider Internal Medicine
DX: Z00.00 Encounter for general adult medical examination without abnormal findings (principal)
CPT/HCPCS: 36415; 80053; 80061; 85025; G0103

== ENCOUNTER 2024-12-04 15:00 | Outpatient (REF) | payer OTHER, SELFPAY | END 2024-12-04 15:01 | disposition home or self-care (01) | LOC: LAB 15:00 | PROVIDERS: PCP Internal Medicine; Visit Provider Otolaryngology | DX: J34.0 Abscess, furuncle and carbuncle of nose (principal) | CPT/HCPCS: 87070 ==

== ENCOUNTER 2025-10-20 08:32 | Outpatient (OUT) | payer OTHER, SELFPAY ==
--- OUTSIDE RECORDS SUMMARY | 2025-10-20 08:37 | XMS_ITS | Clinical Summary ---
Author Organization [facility] Address [address], [address] [place] [address] Care Team Providers Care Title Abstractor Name Role Phone Jam Tovar DO Primary Care Provider Allergies No known active allergies Medications MedicationSigDispense QuantityRefillsLast FilledStart DateEnd DateStatus celecoxib (CELEBREX) 200 MG capsule Take 200 mg by mouth daily as needed for PainActive amLODIPine (NORVASC) 5 MG tablet Take 5 mg by mouth dailyActive benazepril (LOTENSIN) 20 MG tablet Take 20 mg by mouth dailyActive ranitidine (ZANTAC) 150 MG tablet Take 150 mg by mouth daily as needed for HeartburnActive aspirin (WILY ASPIRIN) 325 MG tablet Take 1 tablet by mouth daily 30 tablet Active Active Problems ProblemNoted DateDiagnosed DatePrimary osteoarthritis of right hip02/09/2018 Encounters DateTypeDepartmentCare UjgrOrtfshrkxft96/12/2025Transcribe Orders [facility] [address] [place], [place] [address] Rachel Ortiz PA-C Skin neoplasm (Primary Dx)from Last 3 Months Social History Tobacco UseTypesPacks/DayYears UsedDateSmoking Tobacco: FormerSmokeless Tobacco: NeverAlcohol UseStandard Drinks/WeekCommentsYes0 (1 standard drink = 0.6 oz pure alcohol)12 pack beer per weekSex and Gender InformationValueDate RecordedSex Assigned at VdydyQwgp62/12/2025 12:40 PM EDTLegal UreTikf9112/19/2017 3:19 PM EST Gender XsowzdlvWjzl09/10/2025 12:40 PM EDTSexual GvtukyjzgloMjwdcbzr10/12/2025 12:40 PM EDT Last Filed Vital Signs Vital SignReadingTime TakenCommentsBlood Kyenoool715/6803 7:00 AM EDT Ropnl793802/10/2018 7:00 AM IMIEmctogpnthg34.7 ??C (98.1 ??F)02/10/2018 7:00 AM EDTRespiratory Bzrp287902/10/2018 7:00 AM EDTOxygen Dcmzqeucff94%02/10/2018 7:00 AM EDTInhaled Oxygen Concentration--Uwjbkv630.3 kg (230 lb)02/09/2018 1:45 PM TAGTauifb227.9 cm (6')02/09/2018 11:00 PM EDTBody Mass Index31.19002/09/2018 1:45 PM EDT Plan of Treatment Not on file Medical Devices ImplantedTypeAreaManufacturerDevice IdentifierShelf Expiration DateModel / Serial / LotImpl Hip Shell Mpact 2hl Cup 60mm Implanted:Qty: 1 on 02/09/2018 by [facility]ip[facility]: HipMEDACTA [facility]RI[facility] ST[facility]INC[facility] PHYSICIANS MEDICAL CENTERPMM01/10/[id number] / / [id number] Hip Liner Mpact Flat Hc 40/G Implanted:Qty: 1 on 02/09/2018 by [facility]ip[facility]: HipMEDACTA [facility]RI[facility] ST[facility]INC[facility] PHYSICIANS MEDICAL [id number] / / [id number] Hip Stem Fem Fen Biomoore 6.5x14mm Implanted:Qty: 1 on 02/09/2018 by [facility]ip[facility]: HipBIOMET [facility]-[id number] / / [id number] Hip Biolox Delta Head M 40mm Implanted:Qty: 1 on 02/09/2018 by [facility]ip[facility]: HipMEDACTA [facility]YSIC[facility] MEDICAL CENTERPMM08/09/[id number] / / [id number] Screw Shell Mpact Implanted:Qty: 1 on 02/09/2018 [facility]/Nail/RodRight: HipMEDACTA [facility]-PMM112/[id number] / / [id number] Insurance Advance Directives * Full Code (Latest Code Status on File) Date ActivatedDate InactivatedComments02/09/2018 8:11 PM02/10/2018 3:23 PM Care Teams Team MemberRelationshipSpecialtyStart DateEnd Date Jam Tovar DO PCP - GeneralInternal Medicine01/05/18
--- OUTSIDE RECORDS SUMMARY | 2025-10-20 08:37 | XMS_ITS | Clinical Summary ---
Author Organization [facility] Address [address] [place] [address] Care Team Providers Care Carrier Associate Name Role Phone Jam Tovar Primary Care Provider [phone] Allergies No known active allergies Medications MedicationSigDispense QuantityRefillsLast FilledStart DateEnd DateStatus amLODIPine (Norvasc) 5 MG tablet amLODIPine BesylateActive benazepril (Lotensin) 5 MG tablet Take 5 mg by mouth DailyActive aspirin 81 MG EC tablet Take 81 mg by mouth DailyActive Krill Oil 500 MG capsule Take by mouthActive TURMERIC CURCUMIN PO Take by mouthActive Active Problems ProblemNoted DateDiagnosed IitaRixytzlrwzmqdj27/05/2024Eczema, dyshidrotic 10/24/2024PH (benign prostatic hyperplasia)10/24/2024Lipoma of head10/24/2024 Nasal septal ulcer10/24/20241421Qwnjvdencdvq31/05/6813Cavcstzkzdpvjf09/05/2024 Elevated CK10/24/2024rimary osteoarthritis of right hip02/09/2018 Encounters DateTypeDepartmentCare UphiPehjuqhnpoo37/23/2025Results Follow-Up [facility] [address] [place] [id number] Rachel Ortiz PA Soft Tissue Palpable Mass08/11/2025 7:30 PM EDTAncillary Procedure [facility] [address] [place] [id number] Skin bcvvndqe06/22/7705Ixzgmw66/19/2025Travelfrom Last 3 Months Social History Tobacco UseTypesPacks/DayYears UsedDateSmoking Tobacco: FormerCigarettes0.515 Smokeless Tobacco: Never Tobacco Cessation:Counseling Given: Not Answered Alcohol UseStandard Drinks/WeekCommentsYes1 (1 standard drink = 0.6 oz pure alcohol)Sex and Gender InformationValueDate RecordedSex Assigned at BirthNot on fileLegal PzwBxqu1802/01/2023 11:51 PM EDTGender IdentityNot on fileSexual OrientationNot on file Last Filed Vital Signs Vital SignReadingTime TakenCommentsBlood Mpejihmj390/71002/04/2025 11:03 AM EDT Fgqbq148902/04/2025 11:03 AM EDTTemperature--Respiratory Rate--Oxygen Saturation-- Inhaled Oxygen Concentration--Ppkiqo137 kg (221 lb)02/04/2025 11:03 AM EDTHeight 180.3 cm (5' 11 )02/04/2025 11:03 AM EDTBody Mass Index30.8202/04/2025 11:03 AM EDT Plan of Treatment Health MaintenanceDue DateLast DoneCommentsCT Rsljuqecuamd1965Colonoscopy 1965Colorectal Cancer Jfsokpfiu1965FIT-DNA1965FIT1965 FOBT1965 0561Aqcfprjkhnxqv1965COVID-19 Vaccine ( season) , 04/06/2022, 11/21/2021, Additional history existsInfluenza Vaccine (#1), 09/21/2022, 11/21/2021, Additional history existsPneumococcal Vaccine: Pediatrics (0 to 5 Years) and At-Risk Patients (6 to 64 Years)Aged OutNo longer eligible based on patient's age to complete this topic Procedures Procedure NamePriorityDate/TimeAssociated DiagnosisCommentsUS SOFT TISSUE PALPABLE LWROTaxqkid57/22/2025 7:34 PM EDT Skin neoplasm from Last 3 Months Results * US Soft Tissue Palpable Mass (08/11/2025 7:34 PM EDT)Anatomical Region LateralityModalityRightUltrasoundSpecimen (Source)Anatomical Location / LateralityCollection Method / VolumeCollection TimeReceived Time08/12/2025 12:39 PM EDT Impressions 08/12/2025 12:42 PM EDT Impression: Probable tiny lipoma at the area of concern. ELECTRONICALLY SIGNED BY: Harsh Byrd MD [facility] 08/12/2025 12:42 PM EDT US SOFT TISSUE PALPABLE MASS History: Mass of the left lateral forehead. Concern for cyst or lipoma. Technique: Sonography of the area of concern was performed. Comparison: None Result: Limited ultrasound performed of the area of concern labeled left forehead. At this site there is a small lobular hyperechoic area measuring 1.2 x 1.0 x 0.3 cm, with echogenicity similar to the adjacent fat, probably representing tiny lipoma. Procedure Note Harsh Byrd MD - 08/12/2025 US SOFT TISSUE PALPABLE MASS History: Mass of the left lateral forehead. Concern for cyst or lipoma. Technique: Sonography of the area of concern was performed. Comparison: None Result: Limited ultrasound performed of the area of concern labeled left forehead.At this site there is a small lobular hyperechoic area measuring 1.2 x 1.0x 0.3 cm, with echogenicity similar to the adjacent fat, probablyrepresenting tiny lipoma. IMPRESSION: Impression: Probable tiny lipoma at the area of concern. ELECTRONICALLY SIGNED BY: Harsh Byrd MD Authorizing ProviderResult TypeResult StatusAlison L [facility] PROCEDURES Final Result from Last 3 Months Insurance Care Teams Team MemberRelationshipSpecialtyStart DateEnd Date Jam Tovar DO [address] [place] [id number] PCP - GeneralInternal Medicine01/31/24
--- OUTSIDE RECORDS SUMMARY | 2025-10-20 08:38 | XMS_ITS | CCD ---
Author Organization [facility] Care Team Providers Care Sub Assembly Team Worker Name Role Phone GUY, DR RIDLEY Attending Unavailable GUY, DR RIDLEY Consulting Unavailable GUY, DR RIDLEY Primary Care Unavailable GUY, DR RIDLEY Admitting Unavailable Jam Tovar Unavailable Jam Tovar MD Primary Care Provider Jam Tovar DO Primary Care Provider [phone] Terrence Kraus MD Attending Provider Jam Tovar Primary Care Unavailable Terrence Kraus Attending Unavailable Terrence Kraus Admitting Unavailable Jam Tovar DO Primary Care Provider JOHN TRIPATHI Referring Unavailable JAM TOVAR Primary Care Unavailable KARLA VIVAS Attending Unavailable JOHN TRIPATHI Attending Unavailable KARLA VIVAS Attending Unavailable KARLA VIVAS Attending Unavailable JOHN TRIPATHI Referring Unavailable Medications Current Medications MedicationDrug Class(es)DatesSig (Normalized)Sig (Original)amLODIPine (17 sources)Dihydropyridine Calcium Channel BlockerStart: 75-47-2523Icwisgpkst 5 mg tablet Active 0 .ROUTE .COMPLEX 90 September 02, 2024 7:43am TAKE 1 TABLET DAILYStart: 02-01-2024 End: 58-62-5475cydc 1 tablet by mouth once dailyAmlodipine 5 mg tablet Discontinued 5 MG PO Daily January 31, 2024 11:00pm September 02, 2024 7:43am aspirin 81 mg delayed release oral tablet (11 sources)Platelet Aggregation Inhibitor, Nonsteroidal Anti-inflammatory Drug Start: 75-64-9981yvdn 1 tablet by mouth once dailyAspirin (Adult Aspirin Regimen) 81 mg tablet,delayed release (DR/EC) Active 81 MG PO Daily November 27, 2024 12:00ambenazepril (18 sources)Angiotensin Converting Enzyme InhibitorStart: 01-04-6400Wutzfckvxp 20 mg tablet Active 0 .ROUTE .COMPLEX 90 September 10, 2024 6:09am TAKE 1 TABLET DAILYStart: 02-01-2024 End: 12-44-3338tdsa 1 tablet by mouth once dailyBenazepril 20 mg tablet Discontinued 20 MG PO Daily 90 90 March 14, 2024 3:08pm September 10, 2024 6:10amtake 1 tablet by mouth once dailybenazepril (Lotensin) 5 MG tablet Take 5 mg by mouth Daily ActiveBenazepril HCl 20 mg TAKE 1 TABLET DAILY ActiveCalcium (1 source)Phosphate Binder, CalciumStart: 18-18-0104uzcy 1 tablet by mouth once dailyCalcium 250 mg tablet Active 250 MG PO Daily November 27, 2024 12:00amkrill oil 500 mg oral capsule (11 sources)Start: 31-01-3993dljt 1 capsule by mouth once dailyKrill Oil 500 mg capsule Active 500 MG PO Daily November 27, 2024 12:00amMultivitamin (Daily Multi-Vitamin) tablet (1 source)Start: 42-06-6543mexe 1 tablet by mouth once dailyMultivitamin (Daily Multi-Vitamin) tablet Active 1 TAB PO Daily November 27, 2024 12:00am sulfamethoxazole 800 mg / trimethoprim 160 mg oral tablet (2 sources)Dihydrofolate Reductase Inhibitor Antibacterial, Sulfonamide AntimicrobialStart: 10-29-2024 End: 72-66-2482shgs 1 tablet by mouth once in the morning, then take 1 tablet by mouth once at bedtimesulfamethoxazole-trimethoprim (Bactrim DS) 800-160 MG per tablet Indications: Chronic rhinitis Take1 tablet by mouth in the morning and 1 tablet before bedtime. Do all this for 21 days. 42 tablet 10/29/2024 11/19/2024 ActiveTURMERIC CURCUMIN PO (10 sources)TURMERIC CURCUMIN PO Take by mouth Active Completed/Discontinued Medications MedicationDrug Class(es)DatesSig (Normalized)Sig (Original)cephalexin 500 mg oral capsule (3 sources)Cephalosporin AntibacterialStart: 57-43-6287hmcm 1 capsule by mouth every six hoursCephalexin 500 MG 1 capsule Orally Four times a day for 10 day(s) Jan, Not-Taking/PRNpredniSONE 20 mg oral tablet (3 sources)Start: 04-54-4200Zwozorvfcl 20 MG predniSONE 20mg, 1 (one) tablet two times daily w/ food x 3 days then qd w/ food x3 days # 9, 11/16/2022, No Refill. Active Oral two times daily w/ food x 3 days then qd w/ food x 3days for 6 Oct, Not-Taking/PRNSuprep Bowel Prep . (3 sources)Start: 45-66-9189Uquile Bowel Prep . as directed Orally as directed for 1 dose(s) Aug, Not-Taking/PRNStart: 61-07-4067Axtees Bowel Prep . as directed Orally as directed for 1 dose(s) Aug, Not-TakingTriamcinolone (3 sources)CorticosteroidStart: 39-87-3625Khjmfxjeksziz Acetonide 0.5% triamcinolone acetonide 0.5%, 1 (one) gram two times daily # 60, 11/04/2022, No Refill. Active topical two times daily for 14 Oct, Not-Taking/PRNStart: 47-04-8842Befjfyjpomgvc Acetonide 0.5% triamcinolone acetonide 0.5%, 1 (one) gram two times daily # 60, 11/04/2022, No Refill. Active topical two times daily for 14 Oct, Not-Taking Problems Active Problems Problem ClassificationProblemDateDocumented DateEpisodic/ChronicAllergic reactions (1 source)Other urticariaEpisodicDeficiency and other anemia (1 source)Anemia, unspecifiedEpisodicDiseases of white blood cells (3 sources)Eosinophil count raised; Translations: [Eosinophilia, unspecified] ChronicDisorders of lipid metabolism (20 sources)Pure hypercholesterolemia; Translations: [Familial hypercholesterolemia]Onset: 129492-83-8303DukjukiBrciboyxpybyft and diverticulitis (15 sources)Diverticulosis of colon; Translations: [Diverticulosis of large intestine without perforation or abscess without bleeding]Onset: 10-24-2024 38-45-4700ScuctwgBhxkxbtuq hypertension (17 sources)Essential hypertension; Translations: [Essential (primary) hypertension]Onset: [id number]paduivm of prostate (15 sources)Lower urinary tract symptoms due to benign prostatic hypertrophy; Translations: [Benign prostatic hyperplasia with lower urinary tract symptoms] Onset: [id number] and fatigue (7 sources)Fatigue; Translations: [Other fatigue]EpisodicNeoplasms of unspecified nature or uncertain behavior (2 sources)Neoplasm of skin; Translations: [Neoplasm of unspecified behavior of bone, soft tissue, and skin]45-66-0763ProzcvgeThcnlpmtcojson (3 sources)Osteoarthritis of right hip joint; Translations: [Unilateral primary osteoarthritis, right hip]Onset: [id number] and unspecified benign neoplasm (1 source)Benign lipomatous neoplasm of skin and subcutaneous tissue of head, face and neck; Translations: [Lipoma of skin and subcutaneous tissue of face] 31-00-1106XvsfncojErtur nutritional; endocrine; and metabolic disorders (9 sources)Body mass index 30+ - obesity; Translations: [Body mass index (BMI) 33.0-33.9, adult]17-86-3557NitexamPrmxm nutritional; endocrine; and metabolic disorders (5 sources)Obesity caused by energy imbalance; Translations: [Other obesity due to excess calories]36-45-0149NknfxzzWosyf screening for suspected conditions (not mental disorders or infectious disease) (6 sources)Encounter for screening for malignant neoplasm of prostate; Translations: [Patient encounter status]Onset: [id number] Comment on above:PSA: 2.02 - 09/2023, 1.66 - 09/2024Other skin disorders (4 sources)Vesicular eczema of hands and/or feet; Translations: [Dyshidrosis [pompholyx]]EpisodicOther skin disorders (2 sources)Asteatosis cutis; Translations: [Xerosis cutis]21-21-5555Aepranmg Other upper respiratory disease (2 sources)Chronic rhinitis; Translations: [Chronic rhinitis]24-42-4982Grewogq Other upper respiratory disease (1 source)Abscess, furuncle and carbuncle of nose; Translations: [Other disease of nasal cavity and sinuses]56-11-3830Takhgcam Past or Other Problems Problem ClassificationProblemDateDocumented DateEpisodic/ChronicOther and unspecified benign neoplasm (12 sources)Lipoma of head; Translations: [Benign lipomatous neoplasm of skin and subcutaneous tissue of head, face and neck]Onset: EpisodicOther liver diseases (11 sources)Increased creatine kinase level; Translations: [Abnormal levels of other serum enzymes]Onset: 667643-98-9383GfxbopdeLtqnj skin disorders (11 sources)Vesicular eczema; Translations: [Dyshidrosis [pompholyx]]Onset: 533677-27-5223LatszodjQtpin upper respiratory disease (14 sources)Ulcer of nasal septum; Translations: [Abscess, furuncle and carbuncle of nose]Onset: 508327-56-4530GjnfdcolAnpgmetcwoqf (1 source)Eosinophilia, unspecified D72.10 Results Test NameValueInterpretationReference RangeFacilityUS SOFT TISSUE PALPABLE MASS on 70-78-1055UA SOFT TISSUE PALPABLE MASSUS SOFT TISSUE PALPABLE MASS History: Mass of [...] the adjacent fat, probably representing tiny lipoma. IMPRESSION: Impression: Probable tiny lipoma at the area of concern. ELECTRONICALLY SIGNED BY: Roxanne Pizano AvailableComment on above: Order Comment: [facility] [#/Vol]on 98-50-0053Ppczhyzxf (Bld) [#/Vol]Automated basophil count0.0-0.1 [facility] HospitalBas[facility] WBC Auto (Bld)on 10-16-2024 Basophils/100 WBC (Bld)Automated basophil %0.2-2.0[facility] HospitalCholesterol in LDL Calc [Mass/Vol]on 00-60-4852Avbwmpmpqmh in LDL [Mass/Vol]Cholesterol in LDL [Mass/volume] in Serum or Plasma by calculation [facility] HospitalComment on above:<100 mg/dl FPFLSJJ540-991 mg/dl NEAR OR ABOVE PRSSAUT407-407 mg/dl BORDERLINE SZIJ102-026 mg/dl HIGH>190 mg/dl VERY HIGHCholesterol in VLDL Calc [Mass/Vol]on 08-27-7566Nghtydbtrel in VLDL [Mass/Vol]Cholesterol in VLDL [Mass/volume] in Serum or Plasma by calculationKeenan Private HospitalEosinophils/100 WBC Auto (Bld)on 80-29-7042Szzxmipbcuh/100 WBC (Bld)Automated eosinophil %0.9-7.0[facility] HospitalErythrocyte distribution width Auto (RBC) [Ratio]on 92-75-4490Txveqsxzaki distribution width (RBC) [Ratio]Erythrocyte distribution width [Ratio] by Automated count11.0-15.0[facility] Estimated glomerular filtration rate (GFR) non- Americanon 10-16-2024 GFR/1.73 sq M.predicted among non-blacks MDRD (S/P/Bld) [Vol rate/Area]Estimated glomerular filtration rate (GFR) non- AmericanLow>=60 mL/min/1.73m 2 [facility] HospitalGlobulin Calc (S) [Mass/Vol]on 10-16-2024 Globulin (S) [Mass/Vol]Serum globulin measurement by calculation (mass/volume) [facility] HospitalHematocrit Auto (Bld) [Volume fraction]on 88-41-8555Chfqzmjdhu (Bld) [Volume fraction]Hematocrit [Volume Fraction] of Blood by Automated count42.0-54.0[facility] HospitalHemoglobin [Mass/volume] in Bloodon 06-61-5854Tafptsznly (Bld) [Mass/Vol]Hemoglobin [Mass/volume] in UuxssXsj36.0-18.0[facility] HospitalLaboratory - Chemistry and Chemistry - challengeon 43-06-2844Sndkotv [Mass/Vol]3.5 g/dL 3.4-5.0[facility] HospitalALP [Catalytic activity/Vol]43 U/LLow 46-116[facility] HospitalALT [Catalytic activity/Vol]19 U/L16-63 [facility] HospitalAST [Catalytic activity/Vol]13 U/YKrc94-26 [facility] HospitalBilirubin [Mass/Vol]0.5 mg/dL0.2-1.0[facility] HospitalCalcium [Mass/Vol]8.3 mg/dLLow8.5-10.1FBarnesville HospitalChloride [Moles/Vol]106 mmol/Q54-268OnxyradupKeenan Private HospitalCholesterol [Mass/Vol]207 mg/dLHigh<=200[facility] Cholesterol in HDL [Mass/Vol]55 mg/xJ45-72HmuoqxuukKeenan Private Hospital Comment on above:> or =60 mg/dl - LOW CARDIOVASCULAR RISK<40 mg/dl - HIGH CARDIOVASCULAR RISKCO2 [Moles/Vol]29.8 mmol/L21.0-32.0[facility] HospitalCreatinine [Mass/Vol]1.27 mg/dL0.70-1.30[facility] GFR/1.73 sq M.predicted MDRD (S/P/Bld) [Vol rate/Area]mL/min/{1.73_m2}>=60 mL/min/1.73m 2FBarnesville HospitalGlucose [Mass/Vol]96 mg/pV14-320 [facility] HospitalPotassium [Moles/Vol]3.9 mmol/L3.5-5.1FBarnesville HospitalProtein [Mass/Vol]6.5 g/dL6.4-8.2FCincinnati Shriners Hospitalodium [Moles/Vol]142 mmol/H643-355AsuqywlusKeenan Private HospitalTriglyceride [Mass/Vol]129 mg/dL<=150[facility] HospitalUrea nitrogen [Mass/Vol]14.0 mg/dL7.0-18.0[facility] HospitalUrea nitrogen/Creatinine [Mass ratio]11.0 mg/mgKeenan Private Hospital Laboratory - Hematology and Cell countson 14-26-2862Hwsmrvfe granulocytes/100 WBC (Bld)0.0 %0.0-0.5FBarnesville HospitalLeukocytes [#/volume] corrected for nucleated erythrocytes in Blood by Automated counon 25-68-4562HLD corrected for nucl RBC Auto (Bld) [#/Vol]Leukocytes [#/volume] corrected for nucleated erythrocytes in Blood by Automated coun4.0-11.0[facility] HospitalLymphocytes Auto (Bld) [#/Vol]on 86-69-8401Cjldjxxiqyh (Bld) [#/Vol]Lymphocytes [#/volume] in Blood by Automated count1.2-3.8[facility] HospitalLymphocytes/100 WBC Auto (Bld)on 10-16-2024 Lymphocytes/100 WBC (Bld)Lymphocytes/100 leukocytes in Blood by Automated count 20.5-60.0[facility] CenterH Auto (RBC) [Entitic mass]on 72-37-6620MRL (RBC) [Entitic mass]MCH [Entitic mass] by Automated count25.9-34.0 [facility] HospitalMCHC Auto (RBC) [Mass/Vol]on 80-12-1313CYXC (RBC) [Mass/Vol]MCHC [Mass/volume] by Automated count29.9-35.2FBarnesville HospitalMCV Auto (RBC) [Entitic vol]on 62-40-7302PKN (RBC) [Entitic vol] MCV [Entitic volume] by Automated vquppItvc19.0-94.0[facility] HospitalMonocytes Auto (Bld) [#/Vol]on 36-55-2204Jupnaeyvn (Bld) [#/Vol]Automated blood monocyte count0.3-0.8[facility] HospitalMonocytes/100 WBC Auto (Bld)on 74-86-6481Iduyswkly/100 WBC (Bld)Automated monocyte %1.7-12.0 [facility] HospitalNeutrophils Auto (Bld) [#/Vol]on 10-16-2024 Neutrophils (Bld) [#/Vol]Neutrophils [#/volume] in Blood by Automated count 1.4-6.5FBarnesville HospitalNeutrophils/100 WBC Auto (Bld)on 04-33-7933Mhvfqktgaip/100 WBC (Bld)Automated neutrophil %43.0-75.0[facility] HospitalNo Panel Informationon 12-17-1981Ldrbwdqfbgj # (Auto)0.2 10 3/uL0.0-0.7FBarnesville HospitalImmature Granulocyte # (Auto)0.00 10 3/uL0.00-0.03[facility] HospitalProstate Specific Antigen Screen1.66 ng/mL<=4.00[facility] HospitalPlatelet mean volume Auto (Bld) [Entitic vol]on 01-21-7292Vxxkflrd mean volume (Bld) [Entitic vol] Platelet mean volume [Entitic volume] in Blood by Automated countLow9.5-13.5 [facility] HospitalPlatelets Auto (Bld) [#/Vol]on 10-16-2024 Platelets (Bld) [#/Vol]Platelets [#/volume] in Blood by Automated fxuhe344-562 [facility] HospitalRBC Auto (Bld) [#/Vol]on 75-54-7306GHD (Bld) [#/Vol]Erythrocytes [#/volume] in Blood by Automated countLow4.70-6.10Barnesville Hospitalerum or plasma albumin/globulin mass ratioon 10-16-2024 Albumin/Globulin [Mass ratio]Serum or plasma albumin/globulin mass ratio [facility]ville Hospitalerum or plasma anion gap determinationon 49-90-8850Dpoth gap [Moles/Vol]Serum or plasma anion gap determinationBarnesville Hospitalerum or plasma total cholesterol/high density lipoprotein (HDL) cholesterol mass beau 28-98-5515Fvyuhmhhixb.total/Cholesterol in HDL [Mass ratio]Serum or plasma total cholesterol/high density lipoprotein (HDL) cholesterol mass ratKeenan Private HospitalComment on above:3.3 - 4.4 LOW RISK4.4 - 7.1 AVERAGE RISK7.1 - 11.0 MODERATE RISK>11.0 HIGH RISKCBC AUTO DIFFon 46-25-4910DFVF #0.0 103/ulNormal0.0-0.1The [facility] HospitalComment on above:Performed By: #### CBC #### [facility] [address] [address] [address] Cornelio Romanophils/100 WBC (Bld)0.4 %Normal0.2-2.0The [facility] Comment on above:Performed By: #### CBC #### [facility] [address] [place] [address] Dr. Cornelio Jones #0.2 103/ulNormal0.0-0.7The [facility] HospitalComment on above: Performed By: #### CBC #### [facility] [address] [place] [address] Dr. Cornelio Ruanoosinophils/100 WBC (Bld)3.8 %Normal0.9-7.0The [facility] Comment on above:Performed By: #### CBC #### [facility] [address] [place] [address] Dr. Cornelio Ruanorythrocyte distribution width (RBC) [Ratio]13.0 %Dzvqkg34.0-15.0 The [facility] HospitalComment on above:Performed By: #### CBC #### [facility] [address] [place] [address] Dr. Cornelio PelayoHematocrit (Bld) [Volume fraction]43.0 %Jhznud91.0-54.0The [facility] HospitalComment on above:Performed By: #### CBC #### [facility] [address] [place] [address] Dr. Cornelio PelayoHemoglobin (Bld) [Mass/Vol]14.1 g/wKZdqcpe37.0-18.0The [facility] HospitalComment on above:Performed By: #### CBC #### [facility] [address] [place] [address] Dr. Cornelio Dunlap #0.00 10e3/ulNormal0.00-0.03The [facility] HospitalComment on above:Performed By: #### CBC #### [facility] [address] [place] [address] Dr. Cornelio Dunlap %0.0 %Normal0.0-0.5The [facility] HospitalComment on above: Performed By: #### CBC #### [facility] [address] [place] [address] Dr. Cornelio Simms #1.7 103/ulNormal1.2-3.8The [facility] HospitalComment on above:Performed By: #### CBC #### [facility] [address] [place] [address] Dr. Cornelio Mustafahocytes/100 WBC (Bld)36.4 %Eyphos35.5-60.0The [facility] HospitalComment on above:Performed By: #### CBC #### [facility] [address] [place] [address] Dr. Cornelio Amador DIFF REQNONormalThe [facility] HospitalComment on above: Performed By: #### CBC #### [facility] [address] [place] [address] Dr. Cornelio Navarro (RBC) [Entitic mass]30.7 jsPzeibc73.9-34.0The [facility] HospitalComment on above:Performed By: #### CBC #### [facility] [address] [place] [address] Dr. Cornelio Rasheed (RBC) [Mass/Vol]32.8 g/xLCvbfqe04.9-35.2The [facility] HospitalComment on above:Performed By: #### CBC #### [facility] [address] [place] [address] Dr. Cornelio Rasheed (RBC) [Entitic vol]93.5 mAEfrjip06.0-94.0The [facility] HospitalComment on above:Performed By: #### CBC #### [facility] [address] [place] [address] Dr. Cornelio Burgess #0.4 103/ulNormal0.3-0.8The [facility] HospitalComment on above:Performed By: #### CBC #### [facility] [address] [place] [address] Dr. Cornelio Reynosoocytes/100 WBC (Bld)8.5 %Normal1.7-12.0The [facility] Comment on above:Performed By: #### CBC #### [facility] [address] [place] [address] Dr. Cornelio Sandoval #2.4 103/ulNormal1.4-6.5The [facility] HospitalComment on above:Performed By: #### CBC #### [facility] [address] [place] [address] Dr. Cornelio Madridutrophils/100 WBC (Bld)50.9 %Scgxqw24.0-75.0The [facility] HospitalComment on above:Performed By: #### CBC #### [facility] [address] [place] [address] Dr. Cornelio PelayoPlatelet mean volume (Bld) [Entitic vol]9.0 fLCritically low 9.5-13.5The [facility] HospitalComment on above:Performed By: #### CBC #### [facility] [address] [place] [address] Dr. Cornelio GrossT222 103/elRqfmwg687-281Tzh [facility] HospitalComment on above: Performed By: #### CBC #### [facility] [address] [place] [address] Dr. Cornelio PelayoRBC4.60 106/ulCritically low4.70-6.10The [facility] HospitalComhar[facility] on above:Performed By: #### CBC #### [facility] [address] [place] [address] Dr. Cornelio PelayoWBC4.7 103/ulNormal4.0-11.0The [facility] HospitalComharbor beach community hospital on above: Performed By: #### CBC #### [facility] [address] [place] [address] Dr. Cornelio PelayoLIPID PROFILEon 37-61-8296ELOA-HDL RATIO NORMSEE [facility] HospitalComhar[facility] on above:Result Comment: 3.3 - 4.4 LOW RISK 4.4 - 7.1 AVERAGE RISK 7.1 - 11.0 MODERATE RISK >11.0 HIGH RISKPerformed By: #### LIPID, CMP #### [facility] [address] [place] [address] Dr. Cornelio PelayoCholesterol [Mass/Vol]233 mg/dLCritically high<=200[facility] on above:Performed By: #### LIPID, CMP #### [facility] [address] [address] [address] Cornelio PelayoCholesterol in HDL [Mass/Vol]58 mg/kBDumgso80-24Znf [facility] HospitalComhar[facility] on above:Performed By: #### LIPID, CMP #### [facility] [address] [address] [address] Cornelio PelayoCholesterol in LDL [Mass/Vol]151.4 mg/dLNoHolzer Medical Center – JacksonComment on above:Performed By: #### LIPID, CMP #### [facility] [address] [place] [address] Dr. Cornelio Jenkins.total/Cholesterol in HDL [Mass ratio]4.0 {ratio} NormalThe [facility] HospitalComment on above:Performed By: #### LIPID, CMP #### [facility] [address] [place] [address] Dr. Cornelio Mendes NORMAL> or = 60 mg/dl - LOW CARDIOVASCULAR RISK <40 mg/dl - HIGH CARDIOVASCULAR RISKAvita Health System Bucyrus HospitalComharbor beach community hospital on above:Performed By: #### LIPID, CMP #### [facility] [address] [place] [address] Dr. Cornelio Valles CALC NORMALSEE BELOWAvita Health System Bucyrus HospitalComment on above:Result Comment: <100 mg/dl OPTIMAL 100 - 129 mg/dl NEAR OR ABOVE OPTIMAL 130 - 159 mg/dl BORDERLINE HIGH 160 - 189 mg/dl HIGH >190 mg/dl VERY HIGH Performed By: #### LIPID, CMP #### [facility] [address] [place] [address] Dr. Cornelio PelayoTriglyceride [Mass/Vol]118 mg/dLNormal<=150The [facility] Comment on above:Performed By: #### LIPID, CMP #### [facility] [address] [place] [address] Dr. Cornelio LittlejohnLDL CALC23.6 mg/dLNoHolzer Medical Center – JacksonComment on above: Performed By: #### LIPID, CMP #### [facility] [address] [address] [address] Cornelio Britt 14(COMP METB)on 88-61-8239Nuuiatl [Mass/Vol]3.7 g/dLNormal 3.4-5.0The [facility] HospitalComment on above:Performed By: #### LIPID, CMP #### [facility] [address] [address] [address] Cornelio PelayoAlbumin/Globulin [Mass ratio]1.1 {ratio}NormalThe [facility] HospitalComment on above:Performed By: #### LIPID, CMP #### [facility] [address] [address] [address] Cornelio Figueroa [Catalytic activity/Vol]50 U/EFpjnxo11-719Gdj [facility] HospitalComment on above:Performed By: #### LIPID, CMP #### [facility] [address] [address] [address] Cornelio Preciado [Catalytic activity/Vol]15 U/LCritically mcv32-97Nku [facility] HospitalComment on above:Performed By: #### LIPID, CMP #### [facility] [address] [address] [address] Cornelio Liu gap [Moles/Vol]11.0 mmol/LNormalThe [facility] Comment on above:Performed By: #### LIPID, CMP #### [facility] [address] [address] [address] Cornelio Alvarez [Catalytic activity/Vol]19 U/VEdsada51-54Nxp [facility] HospitalComment on above:Performed By: #### LIPID, CMP #### [facility] [address] [address] [address] Cornelio PelayoBilirubin [Mass/Vol]0.4 mg/dLNormal0.2-1.0The [facility] Comment on above:Performed By: #### LIPID, CMP #### [facility] [address] [address] [address] Cornelio PelayoCalcium [Mass/Vol]8.6 mg/dLNormal8.5-10.1The [facility] Comment on above:Performed By: #### LIPID, CMP #### [facility] [address] [address] [address] Cornelio PelayoChloride [Moles/Vol]104 mmol/BTnotqq01-769Kak [facility] Comment on above:Performed By: #### LIPID, CMP #### [facility] [address] [address] [address] Cornelio PelayoCO2 [Moles/Vol]29.1 mmol/GHwgdja36.0-32.0The [facility] Comment on above:Performed By: #### LIPID, CMP #### [facility] [address] [address] [address] Cornelio PelayoCreatinine [Mass/Vol]1.15 mg/dLNormal0.70-1.30The [facility] HospitalComment on above:Performed By: #### LIPID, CMP #### [facility] [address] [address] [address] Cornelio RuanoGFR-AF BOLIVIAN>60Normal>=60The [facility] HospitalComment on above:Performed By: #### LIPID, CMP #### [facility] [address] [address] [address] Cornelio Rinaldi-NON AF BOLIVIAN>60Normal>=60The [facility] HospitalComment on above:Performed By: #### LIPID, CMP #### [facility] [address] [address] [address] Cornelio PelayoGlobulin (S) [Mass/Vol]3.4 g/dLNormalThe [facility] HospitalComment on above:Performed By: #### LIPID, CMP #### [facility] [address] [address] [address] Cornelio PelayoGlucose [Mass/Vol]103 mg/rUYbfmrm32-762Zug [facility] Comment on above:Performed By: #### LIPID, CMP #### [facility] [address] [place] [address] Dr. Cornelio PelayoPotassium [Moles/Vol]4.1 mmol/LNormal3.5-5.1The [facility] Comment on above:Performed By: #### LIPID, CMP #### [facility] [address] [address] [address] Cornelio PelayoProtein [Mass/Vol]7.1 g/dLNormal6.4-8.2[facility] Comment on above:Performed By: #### LIPID, CMP #### [facility] [address] [address] [address] Cornelio PelayoSodium [Moles/Vol]140 mmol/TErlkms195-335XhrSelect Medical Trihealth Rehabilitation Hospital Comment on above:Performed By: #### LIPID, CMP #### [facility] [address] [address] [address] Cornelio PelayoUrea nitrogen [Mass/Vol]14.0 mg/dLNormal7.0-18.0[facility] HospitalComment on above:Performed By: #### LIPID, CMP #### [facility] [address] [place] [address] Dr. Cornelio Esparza nitrogen/Creatinine [Mass ratio]12.2 mg/mgNormalThe [facility] HospitalComment on above:Performed By: #### LIPID, CMP #### [facility] [address] [place] [address] Dr. Cornelio Pelayo Vital Signs Date TimeVital SignValuePerforming FldtxcdnzEgyqasdd27-78-9134 10:20-0500 Diastolic blood kpketslr09 mm[Hg]Jam Sono[employer] DO Work Phone: [facility]01-22-2025 10:20-0500 Heart rate62 /minBenjamin Ball DO Work Phone: [phone]01-22-2025 10:20-0500 Respiratory rate18 /minBenjamin Ball DO Work Phone: [phone]01-22-2025 10:20-0500 SaO2% (BldA) [Mass fraction]98 %Jam Ball DO Work Phone: [phone]01-22-2025 10:20-0500 Systolic blood rzcrmuhm751 mm[Hg]Jam Ball DO Work Phone: [facility]01-22-2025 07:51-0500 Body qzjhyh347.88 cmBenjalivia Ball DO Work Phone: [facility]01-22-2025 07:51-0500 Body sfivus92.79 kgBenjamin Ball DO Work Phone: [facility]01-15-2025 14:13-0500 Body zscifj824.3 cmKarla Vivas MD Work Phone: [phone] HospitalCywszgplyi54-40-4743 14:13-0500Body mass index (BMI) [Ratio]31.52 kg/e7EnmzeuKarla Vivas MD Work Phone: [phone] HospitalOoauawykpb14-97-4227 14:13-0500Body vtmbpi568.51 kgKarla Vivas MD Work Phone: 1(286)[address] [place], [place] 3056401-15-2025 14:13-0500Diastolic blood arrvvlmv81 mm[Hg]Karla Vivas MD Work Phone: 1(994)[address] [place], [place] 3056401-15-2025 14:13-0500Heart rate65 /min Karla Vivas MD Work Phone: 1(793)[address] [place], [place] 3056401-15-2025 14:13-0500Systolic blood jjiiueva289 mm[Hg]Karla Vivas MD Work Phone: 1(009)[address] [place], [place] 3056412-10-2024 13:36-0500Body .9 cmKarla Vivas MD Work Phone: [phone]12-10-2024 13:36-0500Body mass index (BMI) [Ratio]30.65 kg/s6GmailqKarla Vivas MD Work Phone: [phone]-[facility] HospitalOnwktprukc91-13-2029 13:36-0500Body aygmbz283.51 kgKarla Vivas MD Work Phone: [phone]-[facility] HospitalEokyistrwg65-39-7521 13:36-0500Diastolic blood dgltexrc29 mm[Hg]Karla Vivas MD Work Phone: [facility] HospitalEiryouegsq80-75-3635 13:36-0500Systolic blood etpnlvcl840 mm[Hg]Karla Vivas MD Work Phone: [facility] HospitalNdjrktjhss00-25-0244 14:05-0500Body .88 cmBenjamin Ball DO Work Phone: [phone]11-22-2024 14:05-0500 Body mass index (BMI) [Ratio]30.2 kg/u9Knnnlual Ball DO Work Phone: 1([phone])[address] [place], [place] 4889511-22-2024 14:05-0500 Body qdefek129.15 kgBenjamin Ball DO Work Phone: 1(465)[address] [place], [place] 4889511-22-2024 14:05-0500 Diastolic blood vfpkcopj44 mm[Hg]Jam Ball DO Work Phone: 1(340)369-[address] [place] [address], [place] 2061611-22-2024 14:05-0500 Heart rate67 /minBenjamin Ball DO Work Phone: 1(013)[address] [place], [place] 4889511-22-2024 14:05-0500 Respiratory rate12 /minBenjamin Ball DO Work Phone: 1([phone])[address] [place], [place] 4889511-22-2024 14:05-0500 Systolic blood djihiblw699 mm[Hg]Jam Ball DO Work Phone: [phone])355-[address] [place] [address] Encounters Encounter DateEncounter TypeCare ProviderFacilityStart: 08-11-2025 End: 44-84-7303gqzodbkubbNRUMRS Rima Barron AvailableStart: 12-55-5162zvnnpfauxv JOHN Kuo [facility] HospitalStart: 07-16-2025 End: 71-54-7768Unhfqy flowsheetAlison Rima LEO Work Phone: [facility] DermatologyStart: 07-16-2025 End: 35-72-2357Embbry flowsheetAlison Rima Tripathi PA Work Phone: noMS [facility] DermatologyStart: 07-16-2025 End: 49-52-7925ykxfhtyxfgLPTUBA Rima Barron AvailableStart: 07-16-2025 End: 00-21-6517Woldkh outpatient visit 15 minutesAlison Rima LEO Work Phone: noms [facility] DermatologyComment on above:Skin neoplasm (Primary Dx); Xerosis cutisStart: 02-04-2025 End: 67-92-8686ajphfwvxncQYGJED Anahi Rose AvailableStart: 01-20-2025 End: 87-72-4196Uimvgiqoy encounterKarla Vivas MD Work Phone: noms CI ENTComment on above:question on ct scanStart: 12-25-2024 End: 96-70-8250Yuyvnljth encounterKarla Vivas MD Work Phone: n[facility] CI ENTComment on above:culture resultsStart: 36-38-6661Fyg-patient / Non-visitBenjamin Ball DO Work Phone: [facility] Work Phone: Start: 12-11-2024 End: 39-10-1025Aoiknexan to same day surgery centerBenjamin Ball DO Work Phone: [facility] Work Phone: Start: 12-11-2024 End: 41-88-5448rxrnncbnmpLpuimflq Ball DO Work Phone: [facility] Work Phone: Start: 12-04-2024 End: 12-56-0974Ensfgf outpatient visit 15 minutesKarla Vivas MD Work Phone: [facility] CI ENTComment on above:Nasal septal ulcer (Primary Dx)Start: 12-04-2024 End: 05-20-2269qdninunhszNRRZGO H TIMMISNot AvailableStart: 12-04-2024 End: 07-89-9442Ovvoxh flowsZulema Vivas MD Work Phone: [facility] CI ENTStart: 12-04-2024 End: 66-64-5961Wuwjzn Ricardo Vivas MD Work Phone: [facility] CI ENTStart: 10-29-2024 End: 54-01-6460Sqfskf Ricardo Vivas MD Work Phone: [facility] CI ENTStart: 10-29-2024 End: 42-75-9762Oiffux Ricardo Vivas MD Work Phone: [facility] CI ENTStart: 10-29-2024 End: 85-85-1993Oalkln outpatient new 45 minutesKarla Vivas MD Work Phone: n[facility] CI ENTComment on above:Chronic rhinitis (Primary Dx)Start: 10-29-2024 End: 70-88-6463opfhcwnkboWFOGQR H TIMMISNot AvailableStart: 06-79-2261Wdu- patient / Non-visitBenjamin Ball DO Work Phone: [facility] Work Phone: Start: 10-11-2024 End: 18-40-2479Oshszkpfj for general adult medical examination without abnormal findingsBenjamin Ball DO Work Phone: [facility]tart: 10-11-2024 End: 75-89-4208Bclqyhs encounter procedureBenjamin Ball DO Work Phone: [facility] Work Phone: Start: 42-77-1708Olgkzyi encounter statusBenjamin Ball DO Work Phone: [facility] Hospitaltart: 23-59-0423Qps- patient / Non-visitBenjamin Ball DO Work Phone: [facility] Work Phone: Start: 12-06-2023 End: 24-83-4691iszqgkywldNyfurnol Ball Other noReveal Other Start: 87-35-4041Fatzuokil encounterBenjamin BallFPG [facility] ClinicStart: 11-15-2023 End: 93-51-3337aofajazbynJsdcnebl Ball Other noReveal Other Start: 77-46-2900Srwvohrnh encounterBenjamin BallFPG [facility] ClinicStart: 11-08-2023 End: 20-97-2758xpvhyynsrjIvhnpvtu Ball Other noReveal Other Start: 71-07-5821Ywrerxfuc encounterBenjamin BallFPG [facility] ClinicStart: 10-08-2023 End: 19-59-4556fxiiaepypyLrmleihv Ball Other noReveal Other Start: 91-57-1148Payqwsonn encounterBenjamin BallFPG [facility] ClinicStart: 49-55-7197Gzbxgntci for general adult medical examination without abnormal findingsDR JAM TOVARMercy Health [facility] Hospital HospitalStart: 09-14-2022 End: 90-53-4568qwhtpkxkinBT JAM BALLFacility:X4Zbmug: 09-14-2022 End: 56-72-1785Aflyrlpwl for general adult medical examination without abnormal findingsDR JAM TVOARFacility:H1 Procedures DateProcedureProcedure DetailPerforming ClinicianStart: 19-80-1631Nvgwmpcvw colonoscopyBenjamin Ball DO Work Phone: Start: 03-29-4455ACF screeningDR JAM TOVARComment on above:Performed By: #### PSASC #### [facility] [address] [place] [address] Dr. Cornelio PelayoLindsborg Community Hospitaloratory test result abnormalBenjamin Ball Other Plan of Treatment DateCare ActivityDetailAuthorStart: 36-00-9646Dovnsxupu vaccinationInfluenza Vaccine (#1)[facility] HealthcareStart: 07-16-2025 End: 13-16-9954QW Soft Tissue Palpable MassUS Soft Tissue Palpable Mass Imaging Routine Skin neoplasm Expected: 07/16/2025, Expires: 07/16/2026[facility] Work Phone: comment on above:Expected: 07/16/2025, Expires: 07/16/2026Start: 02-04-2025 End: 78-33-4810Rauksfe encounter mbspkgigt67/18/2025 11:10 AM EDT Office Visit [facility] [address] [place] [address] Karla Vivas MD [address] [place] [address] [facility] CI ENTStart: 39-06-5290UxewetcjoBarnesville Hospitaltart: 12-04-2024 End: 64-33-4233Oberlvl encounter bnpcjejlg69/15/2025 2:20 PM EST Office Visit [facility] [address] [place] [address] Karla Vivas MD [address] [place] [address] ArrivedNOMS CI ENTComment on above:ArrivedStart: 10-29-2024 End: 52-58-1645Fojncnc encounter yyhfspsvc48/10/2024 1:40 PM EST Office Visit [facility] [address] [place] [address] Karla Vivas MD [address] [place] [address] ArrivedNOMS CI ENTComment on above:ArrivedStart: 27-39-2236Cjzelbk referralKettering Health [facility] Work Phone: Start: 98-68-3211Qilqvbuha vaccinationInfluenza Vaccine (#1)[facility] HealthcareStart: 22-74-2052Afngdgzip for malignant neoplasm of colonNOTN HealthcarePatient EducationHemorrhoids Diverticulosis Know your Meds [facility] Work Phone: Patient referralSumma Health Wad[facility] - [facility] Work Phone: Immunizations Immunization DateImmunizationNotesCare LfgvvggyTwehgpsa08-00-2198djnjcuvol virus vaccine, unspecified formulationKarla Vivas MD Work Phone: [facility] HospitalYbwqcanptp32-91-6637xcbafbv toxoid, reduced diphtheria toxoid, and acellular pertussis vaccine, adsorbedJam Tovar Other [facility] Other [id number] and diphtheria toxoids, adsorbed, preservative free, for adult use (5 Lf of tetanus toxoid and 2 Lf of diphtheria toxoid)Jam Tovar DO Work Phone: [facility] Payers DatePayer CategoryPayerPolicy [id number] Health InsuranceMEDICAL MUTUAL ..[id number] .[id number] .[id number] [id number] .1.020799.3.57[id number] 2..840.1.494485.3.579.2.8[id number] 2..840.1.953090.3.579.2.355082-10-7510Bmhdnjm0025229 2..840.1.384118.3.579.2.709674-49-6111Ludzbhc7661520 2.0.1.755035.3.579.2.227604-91-8714Jfajlnq9990940 2.0.1.735181.3.579.2.171227-06-3761Fvykp[id number] 2.16.840.1.492209.3.579.2.531 Social History DateTypeDetailFacilityStart: 10-29-2024 End: 17-79-6863Nzy Assigned At [facility] Other Start: 10-29-2024 End: 74-14-4514Rkiekzy smoking status NHISEx-smokerNOMS HealthcareHistory of tobacco useCurrent smokerNOMS HealthcareHistory of tobacco useCigarette Smoker [facility] HealthcareStart: 10-29-2024 End: 12-25-4667Fooqmjtzre smoked current (pack per day) - Reported0.5N[facility] HealthcareStart: 01-31-2024 End: 69-80-3593Xwjpzhl use and exposureSmokeless tobacco non-userNOMS Healthcare Start: 10-29-2024 End: 12-71-1521Wlbkuaemb beverage intakeCurrent drinker of alcohol (finding)[facility] HealthcareStart: 05-26-4766Hvl assigned at [facility] pardeeNot on fileN[facility]S Healthcare Start: 22-37-4957IjcXvne (finding)[facility] Hospitaltart: 85-34-7306Xwa Assigned At [facility] Goals DatePatient GoalDesired Activity/State Clinical Notes 11-08-2023 to 07-16-2025 Note Date & JtsgNigoKaueljkx48-81-3801 History of Present illness Narrative* AHMET Mulligan - 07/16/2025 8:40 AM EDT +Lesions: Location: left forehead Duration: about 8 months Quality: denies pain, denies itch, denies bleeding Modifying factors: denies any changes in size/shape Associated symptoms: ' lipoma' Treatments: none; desires removal Established patient of JEANNE Moore All pertinent medical history, medications, and allergies were reviewed. General Exam: alert, oriented to person, place, and time, normal affect, well appearing Unaccompanied A focused exam completed based on patient reported problems, see below: Skin Exam 1. SKIN NEOPLASM Left Forehead Soft, mobile, poorly define subcutaneous nodule. Exam is more consistent with a small lipoma but cyst is possible. US Soft Tissue Palpable Mass US ordered today. Discussed follow up with Dr. Fong for removal as the lesion is asymptomatic and considered cosmetic. 2. XEROSIS CUTIS Generalized Generalized dry skin Counseled on appropriate soaps and moisturizers. Handout given with recommendations highlighted. Next Visit: prn for any new/changing lesions documented in this encounterReynolds County General Memorial HospitalKvyogqxdwc36-71-3116 Telephone encounter Note* Telephone Encounter - June Magdaleno - 01/20/2025 3:03 PM EST Pt cld back and made appt 02/04 w/Dr Vivas [facility] Pirrlrydfo81-40-1015 Miscellaneous Notes* Telephone Encounter - June Magdaleno - 01/20/2025 3:03 PM EST Pt cld back and made appt 02/04 w/Dr Vivas * Telephone Encounter - June Magdaleno - 01/20/2025 1:49 PM EST Lm for pt to call back and schedule the next available appt w/Dr Vivas * Telephone Encounter - Karla Vivas MD - 01/20/2025 12:08 PM EST OK to schedule appt when available * Telephone Encounter - June Magdaleno - 01/20/2025 10:11 AM EST Pt cld and stated that he does not have white discharge coming from his nose/no pain anymore for about 3 wks. Pt feels that maybe he should come in for you to take another look at his nose to see if things have cleared up with white discharge since he has had no signs for 3 wks. Pt does not feel that he needs the CT scan documented in this encounterNOUniversity Health Truman Medical CenterJopyqnkpkt29-92-1592 Telephone encounter Note* Telephone Encounter - June Magdaleno - 01/20/2025 1:49 PM EST Lm for pt to call back and schedule the next available appt w/Dr Vivas [facility] HospitalFexlqemyxr41-37-3589 Telephone encounter Note* Telephone Encounter - Karla Vivas MD - 01/20/2025 12:08 PM EST OK to schedule appt when available [facility] Dgwgcradhz92-54-4913 Telephone encounter Note* Telephone Encounter - June Magdaleno - 01/20/2025 10:11 AM EST Pt cld and stated that he does not have white discharge coming from his nose/no pain anymore for about 3 wks. Pt feels that maybe he should come in for you to take another look at his nose to see if things have cleared up with white discharge since he has had no signs for 3 wks. Pt does not feel that he needs the CT scan [facility] Wkzqyaoagv62-58-6136 Telephone encounter Note* Telephone Encounter - Linda Vivas - 12/25/2024 2:34 PM EST Left a message on pt's vm/will call when we have the results. [facility] Niugxrugrs47-47-4464 Miscellaneous Notes* Telephone Encounter - Linda Vivas - 12/25/2024 2:34 PM EST Left a message on pt's vm/will call when we have the results. * Telephone Encounter - Karla Vivas MD - 12/25/2024 1:07 PM EST No they are not. Notify pt and can lab to check on them * Telephone Encounter - Linda Vivas - 12/25/2024 9:14 AM EST Pt called in, he wants to know if the results are in from his culture at [facility]. documented in this encounterNOMS Vlruuatfsp35-66-8150 Telephone encounter Note* Telephone Encounter - Karla Vivas MD - 12/25/2024 1:07 PM EST No they are not. Notify pt and can lab to check on them [facility] Xtfdtgykme13-72-8062 Telephone encounter Note* Telephone Encounter - Linda Vivas - 12/25/2024 9:14 AM EST Pt called in, he wants to know if the results are in from his culture at [facility]. [facility] BransonYkqrkrfgfo70-16-0025 History and physical [place] [id number] Gastroenterology H&P Signed Patient: Mya Garcia MR#: [id number] : 1965 Acct:[id number] Age/Sex: 59 / M Adm Date: 5 Loc: Room: Type: [facility] Attending Dr: Terrence Kraus MD Copies to: Jam Tovar,DO Terrence Kraus MD~ Date of Service: 12/11/2024 HISTORY & PHYSICAL: Patient's history with special attention to the cardiovascular, pulmonary systems and the current problem was reviewed with the patient immediately prior to the procedure. Present medications and doses reviewed in the EMR. Allergies and pertinent laboratory tests were also re viewedat this time in the EMR. The physical examination, as below, was then performed. Indication, assessment and HPI: 59-year-old man here for screening colonoscopy Family history of GI malignancy? No PHYSICAL EXAMINATION General appearance: NAD Skin: No jaundice Head: NC/AT Eyes: Anicteric Neck: Supple Lungs: Normal respiratory effort, no use of accessory muscles Abdomen: nondistended Neuro: Ox3. REVIEW OF SYSTEMS Constitutional: Denies malaise, fevers Cardiovascular: Denies chest pain, palpitations Respiratory: Denies shortness of breath, wheezing Gastrointestinal: As per HPI Genitourinary: Denies dysuria, polyuria Musculoskeletal: Denies joint swelling, joint stiffness Neurological: Denies confusion, numbness, tingling Endocrine: Denies fatigue Written informed consent obtained from the patient. Risks (including but not limited to perforation, infection, bloating, bleeding, need for emergent surgeryand loss of life), benefits and alternatives explained and questions answered. The patient verbalized understanding. Based on history patient is an appropriate candidate for the procedure. Terrence Kraus M.D. Documented By: Terrence Kraus MD 12/11/24946 Signed By: 12/11/24 0947 [facility]01-22-[address] [address] Colonoscopy Procedure Report Signed Patient: Mya Garcia MR#: [id number] : 1965 Acct:[id number] Age/Sex: 59 / M Adm Date: 5 Loc: Room: Type: [facility] Attending Dr: Terrence Kraus MD Copies to: DO Terrence Coronel MD~ Colonoscopy Date/Provider 12/11/2024 Terrence Kraus MD Colonoscopy Findings: Procedure: Colonoscopy Indication: 59-year-old man here for screening colonoscopy Pre-operative diagnosis: Colon cancer screening Post-operative diagnosis: Diverticulosis, internal hemorrhoids. Sedation: propofol per anesthesia dept O2 oximetry, hemodynamic monitoring was performed pre, during, and post procedure. Patient was identified, H&P completed, patient was given full explanation of the procedure as well as associatedrisks and written consent wasobtained prior to procedure. Patient expressed complete understanding of the procedure as well as alternatives to the procedure and to anesthesia and agreed to proceed with the procedure as indicated. Patient was immediately reassessed prior to IV sedation. Under IV sedation, patient was placed in the left lateral decubitus position. Digital rectal exam was performed and normal. Colonoscope was inserted and passed proximally to the cecum, which was identified by the ileocecal valve, appendiceal orifice and cecal floor. Colonoscope was slowly withdrawnwith the findings as below. [place] bowel prep score was good. Findings: Cecum: Normal. Ascending colon: Normal. Hepatic flexure: Normal. Transverse colon: Normal. Splenic flexure: Normal. Descending colon: Normal. Sigmoid colon: Diverticulosis Rectum: Normal. Retroflexed views: Rectum did show internal hemorrhoids. Biopsy taken: No Complications: None EBL: None Recommendations: -Repeat colonoscopy in 10 years -Follow up with PCP Following a period of recovery, patient was seen and given full explanation of the procedure. Patient tolerated the procedure well and will be discharged in satisfactory, stable condition. Terrence Kraus M.D. Documented By: Terrence Kraus MD 12/11/24 0947 Signed By: 12/11/2448 [facility]01-15-2025 History of Present illness Narrative * Karla Vivas MD - 12/04/2024 2:20 PM EST Subjective Patient ID: Mya Garcia is a 59 y.o. male who presents for Allergic Rhinitis (1 month check ) Pt states there has been no sig change on bactrim. Family History Adopted: Yes Family history unknown: Yes Active Ambulatory Problems Diagnosis Date Noted Diverticulosis 10/24/2024 Eczema, dyshidrotic 10/24/2024 BPH (benign prostatic hyperplasia) 10/24/2024 Lipoma of head 10/24/2024 Nasal septal ulcer 10/24/2024 Hypertension ([facility]/HCC) 10/24/2024 Hyperlipidemia ([facility]) 10/24/2024 Elevated CK 10/24/2024 Resolved Ambulatory Problems Diagnosis Date Noted No Resolved Ambulatory Problems No Additional Past Medical History Past Surgical History: Procedure Laterality Date APPENDECTOMY 2000 COLONOSCOPY 2014 EGD 2009 TOTAL HIP ARTHROPLASTY Right 2018 VASECTOMY 2002 No Known Allergies Current Outpatient Medications on File Prior to Visit Medication Sig Dispense Refill amLODIPine (Norvasc) 5 MG tablet amLODIPine Besylate aspirin 81 MG EC tablet Take 81 mg by mouth Daily benazepril (Lotensin) 5 MG tablet Take 5 mg by mouth Daily Krill Oil 500 MG capsule Take by mouth TURMERIC CURCUMIN PO Take by mouth No current facility-administered medications on file prior to visit. Objective Last Recorded Vitals Vitals: 12/04/24 1413 BP: 105/64 Pulse: 65 ENT Physical Exam Nose Nose comments: LT mid septal purulent fluid Assessment/Plan Diagnoses and all orders for this visit: Nasal septal ulcer Cx obtained. I will send in an rx per cx. If cx negative then I will check a CT of the nose documented in this encounterReynolds County General Memorial HospitalPqbjiygyey59-34-8899 History of Present illness Narrative* Karla Vivas MD - 10/29/2024 1:40 PM EST Subjective Patient ID: Mya Garcia is a 59 y.o. male who presents for Nose Problem (Pt states he has a sore inhis left nostril) Pt states he has had a boil in his nose for 4-5 years. Tx with abx ointment and doxy. States occas drains a white substance. Not usually painful. No nasal surgery. No nasal meds or drusg Review of Systems All other systems reviewed and are negative. Family History Adopted: Yes Family history unknown: Yes Active Ambulatory Problems Diagnosis Date Noted Diverticulosis 10/24/2024 Eczema, dyshidrotic 10/24/2024 BPH (benign prostatic hyperplasia) 10/24/2024 Lipoma of head 10/24/2024 Nasal septal ulcer 10/24/2024 Hypertension (CMS/HCC) 10/24/2024 Hyperlipidemia ([facility]/HCC) 10/24/2024 Elevated CK 10/24/2024 Resolved Ambulatory Problems Diagnosis Date Noted No Resolved Ambulatory Problems No Additional Past Medical History Past Surgical History: Procedure Laterality Date APPENDECTOMY 2000 COLONOSCOPY 2014 EGD 2009 TOTAL HIP ARTHROPLASTY Right 2018 VASECTOMY 2002 No Known Allergies Current Outpatient Medications on File Prior to Visit Medication Sig Dispense Refill amLODIPine (Norvasc) 5 MG tablet amLODIPine Besylate aspirin 81 MG EC tablet Take 81 mg by mouth Daily benazepril (Lotensin) 5 MG tablet Take 5 mg by mouth Daily Krill Oil 500 MG capsule Take by mouth TURMERIC CURCUMIN PO Take by mouth No current facility-administered medications on file prior to visit. Objective Last Recorded Vitals Vitals: 10/29/24 1336 BP: 124/65 ENT Physical Exam Constitutional Appearance: patient appears well-developed and well-nourished, Head and Face Appearance: head appears normal and face appears atraumatic; Ear Ear comments: Sam ears normal Nose External Nose: nares patent bilaterally; external nose normal; Internal Nose: nasal mucosa normal; Nose comments: There is a punctate area of purulent drainage left ant/mid septum Oral Cavity/Oropharynx Lips: normal; Teeth: normal; Gums: gingiva normal; Tongue: normal; Oral mucosa: normal; Hard palate: normal; Neck Neck: neck normal; neck palpation normal; Thyroid: thyroid normal; Respiratory Inspection: breathing unlabored; normal breathing rate; Auscultation: breath sounds are clear; Cardiovascular Inspection: extremities are warm and well perfused; no peripheral edema present; Auscultation: regular rate and rhythm; Assessment/Plan Diagnoses and all orders for this visit: Chronic rhinitis It appears that there is a small chronic abscess of the septum. Likely MRSA. I will tx with bactrimand recheck one month documented in this encounterRe[facility] [id number] Evaluation note* Diagnosis Onset Date Resolution Status Admit Date Hypercholesteremia acuteNov2023 1:59pmLipoma of headacuteNov2023 1:59pm Nasal septal ulceracuteOctober 11, 2024 1:59pmPrimary hypertensionacute October 11, 2024 1:59pmScreening PSA (prostate specific antigen)acuteNov2023 1:59pmWellness examinationacuteOctober 11, 2024 1:59pmScreening for colon cancernoneactiveOctober 11, 2024 1:59pm [facility] Work Phone: 1(248) 336-846101-17-2024 Evaluation note* Encounter Date Diagnosis Assessment Notes Treatment Notes Treatment Clinical Notes Nov, Chronic urticaria (ICD-10 - L50. 8) Patient w/ intermittent pruritic rash. Requesting allergy testing [facility] Other [id number] Evaluation note* Encounter Date Diagnosis Assessment Notes Treatment Notes Treatment Clinical Notes Oct, Anemia (ICD-10 - D64.9) Oct,Eosinophilia, unspecified (ICD-10 - D72.10) [facility] [employer] Other Evaluation noteNo InformationNortRoxborough [facility] Other Evaluation note* Diagnosis Chronic rhinitis- Primary [facility] Diagnosis Nasal septal ulcer- Primary Other diseases of nasal cavity and sinuses [facility]* Diagnosis Skin neoplasm- Primary Neoplasm of unspecified nature of bone, soft tissue, and skin Xerosis cutis Other specified disease of sebaceous glands documented in this encounter [facility] HealthcareHistory and physical note Author Terrence Kraus [facility] HospitalNote Date/TimeJanuary 2024 10:24am [place] [address] Gastroenterology H&P Signed Patient: Mya Garcia MR#: [id number] : 1965 Acct:[id number] Age/Sex: 59 / M Adm Date: 5 Loc: Room: Type: [facility] Attending Dr: Terrence Kraus MD Copies to: Jam Tovar,DO Terrence Kraus MD~ Date of Service: 12/11/2024 HISTORY & PHYSICAL: Patient's history with special attention to the cardiovascular, pulmonary systems and the current problem was reviewed with the patient immediately prior to the procedure. Present medications and doses reviewed in the EMR. Allergies and pertinent laboratory tests were also re viewedat this time in the EMR. The physical examination, as below, was then performed. Indication, assessment and HPI: 59-year-old man here for screening colonoscopy Family history of GI malignancy? No PHYSICAL EXAMINATION General appearance: NAD Skin: No jaundice Head: NC/AT Eyes: Anicteric Neck: Supple Lungs: Normal respiratory effort, no use of accessory muscles Abdomen: nondistended Neuro: Ox3. REVIEW OF SYSTEMS Constitutional: Denies malaise, fevers Cardiovascular: Denies chest pain, palpitations Respiratory: Denies shortness of breath, wheezing Gastrointestinal: As per HPI Genitourinary: Denies dysuria, polyuria Musculoskeletal: Denies joint swelling, joint stiffness Neurological: Denies confusion, numbness, tingling Endocrine: Denies fatigue Written informed consent obtained from the patient. Risks (including but not limited to perforation, infection, bloating, bleeding, need for emergent surgeryand loss of life), benefits and alternatives explained and questions answered. The patient verbalized understanding. Based on history patient is an appropriate candidate for the procedure. Terrence Kraus M.D. Documented By: Terrence Kraus MD 12/11/24946 Signed By: <Electronically signed by Terrence Kraus MD> 12/11/24946 [facility] Work Phone: History general Narrative - Reported* Type Description Date Medical History Eczema, dyshidrotic Medical HistoryDiverticulosis of colonMedical HistoryPrimary hypertensionMedical HistoryMalaiseMedical HistoryFatigueMedical HistoryBenign prostatic hyperplasia with lower urinary tract symptomsMedical HistoryElevated CKMedical History Hyperlipidemia type IISurgical NwjagimPwideymiazn80/2014Surgical History [id number] NdehkhdCfjfbmzbfonz8674Vajntnxd GmvgethXIZ0708Pphcrajn HistoryRight [id number] Historysee above list [facility] [employer] Other History general Narrative - Reported* Type Description Date Medical History Eczema, dyshidrotic Medical HistoryDiverticulosis of colonMedical HistoryPrimary hypertensionMedical HistoryBenign prostatic hyperplasia with lower urinary tract symptomsMedical HistoryHyperlipidemia type IISurgical JfgwfidHgwtxgugana43/2014Surgical History Iriwfqlgy2822Rsqdvkne CyruprvFecdhtxwdsal9023Irnkluxo MrrauvoPPL9234Yyxupxma HistoryRight [id number] Historysee above list [facility] [employer] Other Hospital Discharge instructions Additional Instructions DISCHARGE INSTRUCTIONS FOR COLONOSCOPY WHAT TO EXPECT: - You may feel full, gassy or cramping after your procedure. In some cases, this may be from a few hours to a day. Walking may help relieve the discomfort. - If you have polyp(s) removed you may note some minor bloody discharge after your first bowel movements. - You should begin to recover from anesthesia within 1 hour of the procedure, however may feel groggy for the next 24 hours. DO's AND DON'Ts: - Call your doctor right away if you have a hard abdomen, severe pain, are passing lots of bright red blood or clots. - Call your doctor if you develop any rashes, hives or difficulty breathing. - Let your doctor know if you have not had a bowel movement by 3 days after your procedure. - If you take 81 mg aspirin for your heart it is safe to resume this medication. - If you take other blood thinner medications your doctor will instruct you when these can safely be resumed. - Do NOT drive for 24 hours. - Do NOT operate machinery such as power tools, [employer] mowers, [employer] solar systemswers, sewing machines, etc. for 24 hours. - Avoid alcoholic beverages and drugs for allergies, nerves, or sleep. - Do NOT stay alone. Do NOT leave your child unattended. - Do NOT make important personal or business decisions or sign any legal documents. - Eat solid foods and drink liquids in smaller amounts than usual until normal appetite returns. If you should experience an upset stomach, liquids high in sugar content (soda, Malcolm-Aid, non-acid juices) are recommended. - You can resume normal activities tomorrow. FOLLOW UP & RECOMMENDATIONS: -Notify the doctor if you have any problems. -Repeat colonoscopy in 10 years. -Follow up with PCP. -Office number [phone]. [facility] Work Phone: Summary Purpose Family History No Family History Records Found Relationship Condition Age at Onset Recorded Date/T radha Not Specified Adopted Unknown Advance Directives No Advanced Directives Records Found Advance Directive Response Recorded Date/ Time Advance Directives No December 19, 2023 3:01pm Reason for Referral Reason Urticaria Diagnosis 1 Chronic urticaria (L 50.8) Referral Organization [facility] Duglas reynoso Referring Provider First Name Jam Referring Provider Last Name Guy Referring Provider Specialty Internal Me dicine Referred Organization Unknown Facility Referred Provider Maverick Jeffrey Referred Provider Specialty Allergy/Immu nology Referral Priority Routine General Notes Patient w/ intermitt ent, pruritic rash. This occurs on his trunk and extremities. He denies dysphagia, dyspnea, cough or wheezing. Mild eosinophilia. Requesting allergy testing. Chief Complaint and Reason for Visit Chief Complaint Admit Date CC Adult Risk Stratification October 042023 10:22am Wellness October 11, 2024 1:59pm Screening December 11, 2024 7 :32am Screening December 11, 2024 9 :47am Reason for Visit Admit Date Hypercholesteremia October 11, 2024 1:59pm Lipoma of head October 11, 2024 1:59pm Nasal septal ulcer October 11, 2024 1:59pm Primary hypertension October 11, 2024 1:59pm Screening PSA (prostate specific antigen ) October 11, 2024 1:59pm Wellness examination October 11, 2024 1:59pm Screening for colon cancer September 1:59pm Additional Source Comments (unrecognized sect ion and content) No Status Records FoundNo Status Records FoundNo Status Records FoundNo Status Records Found INFORMATION SOURCE (unrecogn ized section and content) DATE CREATED AUTHOR 09/18/2022 [facility] DATE CREATED AUTHOR AUTHOR'S ORGANIZ ATION 12/21/2024 [facility] DATE CREATED AUTHOR AUTHOR'S ORGANIZ ATION 08/03/2025 [facility] DATE CREATED AUTHOR AUTHOR'S ORGANIZ ATION 08/22/2025 [facility] EPIC REASON FOR VISIT (unrecogniz ed section and content) ReasonCommentsNose ProblemPt states he has a sore in his left nostrilReason CommentsAllergic Rhinitis1 month checkReasonOnset DateCommentsculture results 12/25/2024ReasonOnset DateCommentsquestion on ct scan01/20/2025ReasonComments Suspicious Skin Lesion Care Teams (unrecognized sec tion and content) Team MemberRelationshipSpecialtyStart DateEnd Date Jam Tovar MD [address] [place] [facility] [place] [facility] [phone] PCP - GeneralInternal Medicine01/31/24Team MemberRelationshipSpecialtyStart Date End Date Jam Tovar MD [address] [place] [facility] [place] [phone] PCP - GeneralInternal Medicine01/31/24Team MemberRelationshipSpecialtyStart Date End Date Jam Tovar MD [address] [place] [facility] [place] [facility] [phone] PCP - GeneralInternal Medicine01/31/24Team MemberRelationshipSpecialtyStart Date End Date Jam Tovar MD [address] [place] [facility] [place] [phone] PCP - GeneralInternal Medicine01/31/24 Team Status: Active Member Role Status Dates Jam Tovar DO Primary Care Provider Active Team Status: Active Member Role Status Dates Jam Tovar DO Primary Care Provide r, Attending Provider Active Start: October 04, 2024 Team Status: Inactive Member Role Status Dates Jam Tovar DO Primary Care Provide r, Attending Provider Active Start: October 11, 2024 End: October 11, 2024 Team Status: Active Member Role Status Dates Jam Tovar DO Primary Care Provide r, Attending Provider Active Start: October 16, 2024 Team Status: Inactive Member Role Status Dates Jam Tovar DO Primary Care Provider Active Start: December 11, 2024 End: December 11, 2024Yasmine Carrizales ProviderActiveStart: December 11, 2024 End: December 11, 2024 Team Status: Active Member Role Status Dates aJm Tovar DO Primary Care Provider Active Start: December 11, 2024 ImYasmine Reza Provider, Other ProviderActiveStart: December 11, 2024 Team MemberRelationshipSpecialtyStart DateEnd Date Jam Tovar MD [address] [place] [phone] [facility]01/31/24Team MemberRelationshipSpecialtyStart Date End Date Jam Tovar MD [address] [place] [phone] PCP - [facility]01/31/24Te MemberRelationshipSpecialtyStart Date End Date Jam Tovar DO [facility]01/31/24Team MemberRelationshipSpecialtyStart Date End Date Jam Tovar DO [facility] FOR RECORDS PERTAINING TO PATIENTS WHO ARE [...] BE BASED ON THE PRIMARY CLINICAL RECORDS. [facility] [employer] [facility]. provides no warranty or guarantee of the accuracy or completeness of information in this document.
[2025-10-20 09:49] LABS: Hematocrit 43.4 % (42.0-54.0); Hemoglobin 13.9 g/dL (14.0-18.0); Immature Granulocytes Abs Auto 0.00 10^3/uL (0.00-0.03); Immature Granulocytes Pct Auto 0.0 % (0.0-0.5); Lymphocytes Absolute Auto 1.6 10^3/uL (1.2-3.8); Mean Corpuscular HGB Conc 32.0 g/dL (29.9-35.2); Mean Corpuscular Hemoglobin 30.3 pg (25.9-34.0); Mean Corpuscular Volume 94.8 fL (80.0-94.0); Platelet Count 225 10^3/uL (150-450); Red Blood Count 4.58 10^6/uL (4.70-6.10); White Blood Count 4.8 10^3/uL (4.0-11.0)
[2025-10-20 09:54] LABS: Alanine Aminotransferase 13 U/L (16-63); Albumin Globulin Ratio 1.1; Albumin Level 3.6 g/dL (3.4-5.0); Alkaline Phosphatase 52 U/L (46-116); Anion Gap 7.8; Aspartate Amino Transferase 23 U/L (15-37); Blood Urea Nitrogen 12.0 mg/dL (7.0-18.0); Calcium 8.8 mg/dL (8.5-10.1); Carbon Dioxide 33.5 mmol/L (21.0-32.0); Chloride 105 mmol/L (98-107); Cholesterol 224 mg/dL (<=200); Estimated GFR (African America >60 (>=60 mL/min/1.73m^2); Estimated GFR (Non-African Ame >60 (>=60 mL/min/1.73m^2); Globulin 3.4 g/dL; Glucose 97 mg/dL (74-106); HDL Cholesterol 53 mg/dL (40-60); Potassium 4.3 mmol/L (3.5-5.1); Sodium 142 mmol/L (136-145); Total Protein 7.0 g/dL (6.4-8.2); Triglycerides 148 mg/dL (<=150); VLDL CHOLESTEROL 29.6 mg/dL
== END 2025-10-20 08:33 | disposition home or self-care (01) ==
LOC: LAB 08:34
PROVIDERS: PCP Internal Medicine; Visit Provider Internal Medicine
DX: Z00.00 Encounter for general adult medical examination without abnormal findings (principal); Z12.5 Encounter for screening for malignant neoplasm of prostate
CPT/HCPCS: 36415; 80053; 80061; 85025; G0103